=== PATIENT | male | born 1930 | race Caucasian/White ===

== ENCOUNTER 2019-02-10 14:50 | Inpatient (IN) | payer MEDICARE, OTHER ==
[2019-02-10 15:55] LABS: BASOPHILS # (AUTO) 0.1 10^3/uL (0.0-0.1); BASOPHILS % (AUTO) 1.1 %; EOSINOPHILS # (AUTO) 0.2 10^3/uL (0.0-0.7); EOSINOPHILS % (AUTO) 3.2 %; LYMPHOCYTES # (AUTO) 1.2 10^3/uL (1.5-3.5); LYMPHOCYTES % (AUTO) 20.4 %; MEAN CORPUSCULAR HEMOGLOBIN 18.7 pg (27.0-31.0); MEAN CORPUSCULAR HGB CONC 28.4 g/dL (32.0-36.0); MEAN CORPUSCULAR VOLUME 65.8 fL (80.0-94.0); MEAN PLATELET VOLUME 7.2 fL (7.4-11.4); MONOCYTES # (AUTO) 0.6 10^3/uL (0.0-1.0); MONOCYTES % (AUTO) 9.8 %; NEUTROPHILS # (AUTO) 3.9 10^3/uL (1.5-6.6); NEUTROPHILS % (AUTO) 65.5 %; PLT - PLATELET COUNT 263 10^3/uL (130-450); RED BLOOD COUNT 3.66 10^6/uL (4.70-6.10); RED CELL DISTRIBUTION WIDTH 17.9 % (12.0-15.0)
[2019-02-10 16:00] LABS: HGB - HEMOGLOBIN 6.8 g/dL (14.0-18.0)
[2019-02-10 16:04] LABS: ALBUMIN 3.3 g/dL (3.2-5.5); ALBUMIN/GLOBULIN RATIO 1.1 (1.0-2.2); BILIRUBIN,TOTAL 0.7 mg/dL (0.2-1.0); CALCIUM 8.8 mg/dL (8.5-10.3); CREATININE 1.1 mg/dL (0.6-1.2); INR 3.1 (0.8-1.2); PT - PROTHROMBIN TIME 34.3 secs (9.9-12.6); TOTAL PROTEIN 6.4 g/dL (6.7-8.2)
--- NOTE | 2019-02-10 16:16 | XRAY Report ---
Reason: shortness of breath, hx CHF Procedure Date: 02/10/2019 Accession Number: [id number] / [id number] Procedure: XR - Chest 2 View X-Ray CPT Code: 74820 FULL RESULT: EXAM: CHEST RADIOGRAPHY EXAM DATE: 02/10/2019 04:03 PM. CLINICAL HISTORY: Shortness of breath, hx CHF. COMPARISON: None. TECHNIQUE: 2 views. FINDINGS: Lungs/Pleura: Large bilateral pleural effusions. Hypoventilatory chest. Both lower lobes cannot be evaluated because of overlying fluid. Mild pulmonary venous congestion. Mediastinum: Mild to moderate cardiac enlargement. Other: None. IMPRESSION: Findings consistent with congestive heart failure, and include large bilateral pleural effusions. RADIA
[2019-02-10 16:17] LABS: PLATELET ESTIMATE, MANUAL NORMAL (130-450,000) (NORMAL); PLATELET MORPHOLOGY NORMAL APPEARANCE (NORMAL)
--- NOTE | 2019-02-10 16:48 | ED Physician Documentation ---
History of Present Illness - Stated complaint Stated Complaint: SOB - Chief complaint Chief Complaint: Resp - History obtained from History obtained from: Patient, Family - History of Present Illness Timing: How many days ago (several) Pain level max: 0 Pain level now: 0 - Additonal information Additional information: 88-year-old male presents the emergency department shortness of breath worsening for the past several days. No chest pain. No headache. No coughing. No vomiting. No fevers. He states that his primary care provider called him today told him he was anemic and should go to the emergency department. Patient denies any black or bloody stools. No changes to medication. He has wheelchair-bound for the past year and a half. Normally can transfer himself with a bar, but unable to do this secondary to weakness for the past few days. Also had a 30 pound weight gain in the past month or so per caregivers. Does have a CHF history. Also history of A. fib. Review of Systems Ten Systems: 10 systems reviewed and negative Constitutional: denies: Fever, Chills GI: denies: Vomiting, Hematemesis, Bloody / black stool Skin: denies: Rash Musculoskeletal: denies: Neck pain, Back pain PD PAST MEDICAL HISTORY - Past Medical History Past Medical History: Yes Cardiovascular: Congestive heart failure, Hypertension, Atrial fibrillation - Present Medications Home Medications: Ambulatory Orders Medication Instructions Recorded Confirmed Aspirin [Aspirin EC] 81 mg PO DAILY 02/10/19 02/10/19 Atenolol 25 mg PO DAILY 02/10/19 Bumetanide 1 mg PO DAILY 02/10/19 Cholecalciferol [Vitamin D3] 5,000 unit PO DAILY 02/10/19 Lisinopril 5 mg PO DAILY PM 02/10/19 Multivit-Min/FA/Lycopen/Lutein 1 each PO DAILY 02/10/19 [Centrum Silver Men Tablet] Simvastatin 40 mg PO DAILY PM 02/10/19 Tamsulosin HCl [Flomax] 0.4 mg PO DAILY PM 02/10/19 Warfarin Sodium 4 mg PO 02/10/19 Warfarin Sodium 6 mg PO 02/10/19 - Allergies Allergies/Adverse Reactions: Allergies Allergy/AdvReac Type Severity Reaction Status Date / Time No Known Drug Allergies Allergy Verified 02/10/19 15:09 - Living Situation Living Situation: reports: With family Living Arrangement: reports: At home - Social History Does the pt smoke?: No Does the pt have substance abuse?: No PD ED PE NORMAL - Vitals Vital signs reviewed: Yes - General General: Alert and oriented X 3, No acute distress - HEENT HEENT: PERRL, Moist mucous membranes - Neck Neck: Supple, no meningeal sign - Cardiac Cardiac: Other (irregular) - Respiratory Respiratory: No respiratory distress, Other (dimished BS bilaterally) - Abdomen Abdomen: Soft, Non tender, Non distended - Rectal Rectal: Other (normal rectal exam. hemoccult negative) - Derm Derm: Warm and dry - Extremities Extremities: Other (2+ pitting edema B) - Neuro Neuro: Alert and oriented X 3 - Psych Psych: Normal mood, Normal affect Results - Vitals Vitals: Vital Signs - 24 hr 02/10/19 02/10/19 15:01 16:10 Temperature 36.2 C L Heart Rate 89 89 Respiratory 20 26 H Rate Blood Pressure 113/73 138/75 H O2 Saturation 98 95 Oxygen O2 Source Room air - EKG (time done) 1504 Rate: Rate (enter#) (83) Rhythm: Atrial fibrillation [place]: Normal Intervals: LBBB - Labs Labs: Laboratory Tests 02/10/19 02/10/19 02/10/19 15:44 15:44 15:44 WBC 6.0 RBC 3.66 L Hgb 6.8 L* Hct 24.1 L MCV 65.8 L MCH 18.7 L MCHC 28.4 L RDW 17.9 H Plt Count 263 MPV 7.2 L Neut # (Auto) 3.9 Lymph # (Auto) 1.2 L [place] # (Auto) 0.6 Eos # (Auto) 0.2 Baso # (Auto) 0.1 Absolute Nucleated RBC 0.00 Nucleated RBC % 0.1 Manual Slide Review Indicated Platelet Estimate NORMAL (130-450,000) Platelet Morphology NORMAL APPEARANCE RBC Morph Micro Appear 1+ BASO STIPPLING PT 34.3 H INR 3.1 H Sodium 138 Potassium 4.6 Chloride 100 L Carbon Dioxide 28 Anion Gap 10.0 BUN 24 H Creatinine 1.1 Estimated GFR (MDRD) 63 L Glucose 154 H Glycated Hemoglobin Estim Average Glucose Calcium 8.8 Iron TIBC % Saturation Transferrin Total Bilirubin 0.7 AST 15 ALT 11 Alkaline Phosphatase 52 B-Natriuretic Peptide Total Protein 6.4 L Albumin 3.3 Globulin 3.1 Albumin/Globulin Ratio 1.1 Lipase 28 Blood Type Blood Type Recheck Antibody Screen Crossmatch IS Only 02/10/19 02/10/19 02/10/19 15:44 15:44 15:44 WBC RBC Hgb Hct MCV MCH MCHC RDW Plt Count MPV Neut # (Auto) Lymph # (Auto) [place] # (Auto) Eos # (Auto) Baso # (Auto) Absolute Nucleated RBC Nucleated RBC % Manual Slide Review Platelet Estimate Platelet Morphology RBC Morph Micro Appear PT INR Sodium Potassium Chloride Carbon Dioxide Anion Gap BUN Creatinine Estimated GFR (MDRD) Glucose Glycated Hemoglobin Estim Average Glucose Calcium Iron 11 L TIBC 396 % Saturation 3 L Transferrin 283 Total Bilirubin AST ALT Alkaline Phosphatase B-Natriuretic Peptide 177 H Total Protein Albumin Globulin Albumin/Globulin Ratio Lipase Blood Type Blood Type Recheck A NEGATIVE Antibody Screen Crossmatch IS Only 02/10/19 02/10/19 16:32 16:41 WBC RBC Hgb Hct MCV MCH MCHC RDW Plt Count MPV Neut # (Auto) Lymph # (Auto) [place] # (Auto) Eos # (Auto) Baso # (Auto) Absolute Nucleated RBC Nucleated RBC % Manual Slide Review Platelet Estimate Platelet Morphology RBC Morph Micro Appear PT INR Sodium Potassium Chloride Carbon Dioxide Anion Gap BUN Creatinine Estimated GFR (MDRD) Glucose Glycated Hemoglobin 7.9 H Estim Average Glucose 180 H Calcium Iron TIBC % Saturation Transferrin Total Bilirubin AST ALT Alkaline Phosphatase B-Natriuretic Peptide Total Protein Albumin Globulin Albumin/Globulin Ratio Lipase Blood Type A NEGATIVE Blood Type Recheck Antibody Screen NEGATIVE Crossmatch IS Only See Detail - Rads (name of study) cxr Radiology: Prelim report reviewed, EMP read contemporaneously, See rad report (Findings consistent with congestive heart failure, and include large bilateral pleural effusions. ) PD MEDICAL DECISION MAKING - ED course Complexity details: reviewed results, re-evaluated patient, considered differential, d/w patient, d/w family, d/w senior internet sales consultant ED course: 88-year-old male who receives most of his care at the [facility] outpatient office. He is found to have a CHF exacerbation with anasarca and pulmonary edema as well as pleural effusions. Also found to have significant anemia. Guaiac is negative on rectal exam. Will admit for blood transfusion and diuresis. Discussed the case with Dr. Horowitz, hospitalist who accepts This document was made in part using voice recognition software. While efforts are made to proofread this document, sound alike and grammatical errors may occur. Departure - Departure Disposition: 66 [facility] DC/Xfer Clinical Impression: Symptomatic anemia, Peripheral edema CHF exacerbation Qualifiers: Heart failure type: unspecified Qualified Code(s): I50.9 - Heart failure, unspecified Pulmonary edema Qualifiers: Chronicity: acute Qualified Code(s): J81.0 - Acute pulmonary edema Condition: Stable Discharge Date/Time: 02/10/19 18:12
[2019-02-10] MEDS ORDERED: FUROSEMIDE 40 MG/4 ML VIAL IVP STA (16:52)
[2019-02-10] MEDS ORDERED: FUROSEMIDE 20 MG/2 ML VIAL IVP PRN (17:18)
[2019-02-10] MEDS ORDERED: ONDANSETRON ODT 4 MG TABLET TL PRN (17:22)
[2019-02-10] MEDS ORDERED: ACETAMINOPHEN 325 MG TABLET PO PRN (17:22)
--- NOTE | 2019-02-10 18:16 | HISTORY & PHYSICAL EXAMINATION ---
Chief Complaint - Chief Complaint Chief Complaint: Progressive weakness with bilateral edema weight gain orthopnea and dark st Chest Pain Admission HPI - Admitted From Admitted from: ED - History Obtained From Records Reviewed: RN notes reviewed History obtained from: Patient, Family, Caregiver - History of Present Illness HPI Comment/Other: 88-year-old male With multiple cardiovascular comorbidities to include hypertension, hyperlipidemia, CHF, chronic atrial fibrillation anticoagulated with Coumadin, insulin requiring type 2 diabetes mellitus, morbid obesity, chronic bilateral edema who presents to the emergency department with progressive weakness, orthopnea, dyspnea on exertion, and a 30 pound weight gain with edematous legs. Patient also complains of increased abdominal girth. Patient's BNP was only 177 and was told to come in due to an abnormal hemoglobin of 6.8 found in the ED. [place] to the [place] and his doctor is Dr. Chris Coy who referral to see a medical nurse and a GI specialist because he believes that he has upper GI bleed. Patient was recently seenAdmitted over in [place] for coagulopathy related to his INR being supratherapeutic. Patient's initial labs showed a INR of 3.1. Hemoglobin 6.8, creatinine 1.1, BNP 177, glucose 154, chest x-ray showed probable vascular congestion with large bilateral pleural effusions. Ascites seen on exam. Very edematous bilateral lower extremity with chronicity with 4+ edema noted. EKG showed A. fib at 83 bpm with a left bundle branch block. We do not have prior echocardiogram or access to prior medical records. He has wheelchair-bound for the past year and a half. Normally can transfer himself with a bar, but unable to do this secondary to weakness for the past few days. PMH/PSH - Past Medical History MRSA Hx?: No Social & Family Hx - Social History Does the pt smoke?: No Smoking Status: Never smoker Does the pt drink ETOH?: No Does the pt have substance abuse?: No Meds/Allgy - Allergies Allergies/Adverse Reactions: Allergies Allergy/AdvReac Type Severity Reaction Status Date / Time No Known Drug Allergies Allergy Verified 02/10/19 15:09 Prior Level of Functionality: Patient was previously ambulatory but unknown functional capacity Exam - Vital Signs Vital Signs: Vital Signs x48h Temp Pulse Resp BP Pulse Ox 02/10/19 17:47 89 22 121/67 95 02/10/19 16:10 89 26 H 138/75 H 95 02/10/19 15:01 36.2 C L 89 20 113/73 98 - Physical Exam General Appearance: positive: No acute distress, Alert Eyes Bilateral: positive: Normal inspection, PERRL, EOMI, Other (Mild conjunctival pallor). negative: No scleral icterus ENT: positive: ENT inspection nml, Pharynx nml, No signs of dehydration Neck: positive: Nml inspection, Thyroid nml, No JVD, Trachea midline. negative: Thyromegaly Respiratory: positive: Chest non-tender, No respiratory distress, Rales, Rhonchi. negative: Wheezes Cardiovascular: positive: No murmur, No gallop, Irregularly irregular Peripheral Pulses: positive: Other (4+ bilateral pitting edema) Abdomen: positive: Non-tender, Hepatomegaly, Other (Significant non-tense ascite s). negative: Tenderness, Guarding, Rebound Rectal: positive: Stool - heme NEG Skin: positive: Color nml, No rash, Warm Extremities: positive: Non-tender, Full ROM, Pedal edema (Significant anasarca to Lower/upper extremities as well). negative: Calf tenderness, Joint swelling Neurologic/Psychiatric: positive: Oriented x3, CN's nml (2-12) Results - Lab Results Lab results reviewed: Yes Fish Bones: 02/10/19 15:44 02/10/19 15:44 Other Lab Results: Lab Results x24hrs 02/10/19 02/10/19 02/10/19 Range/Units 16:41 15:44 15:44 WBC (4.8-10.8) x10^3/uL RBC (4.70-6.10) 10^6/uL Hgb (14.0-18.0) g/dL Hct (42.0-52.0) % MCV (80.0-94.0) fL MCH (27.0-31.0) pg MCHC (32.0-36.0) g/dL RDW (12.0-15.0) % Plt Count (130-450) 10^3/uL MPV (7.4-11.4) fL Neut # (Auto) (1.5-6.6) 10^3/uL Lymph # (Auto) (1.5-3.5) 10^3/uL [place] # (Auto) (0.0-1.0) 10^3/uL Eos # (Auto) (0.0-0.7) 10^3/uL Baso # (Auto) (0.0-0.1) 10^3/uL Absolute Nucleated RBC x10^3/uL Nucleated RBC % /100WBC Manual Slide Review Platelet Estimate (NORMAL) Platelet Morphology (NORMAL) RBC Morph Micro Appear (NORMAL) PT (9.9-12.6) secs INR (0.8-1.2) Sodium (135-145) mmol/L Potassium (3.5-5.0) mmol/L Chloride (101-111) mmol/L Carbon Dioxide (21-32) mmol/L Anion Gap (6-13) BUN (6-20) mg/dL Creatinine (0.6-1.2) mg/dL Estimated GFR (MDRD) (>89) Glucose (70-100) mg/dL Calcium (8.5-10.3) mg/dL Total Bilirubin (0.2-1.0) mg/dL AST (10-42) IU/L ALT (10-60) IU/L Alkaline Phosphatase (42-121) IU/L B-Natriuretic Peptide 177 H (5-100) pg/mL Total Protein (6.7-8.2) g/dL Albumin (3.2-5.5) g/dL Globulin (2.1-4.2) g/dL Albumin/Globulin Ratio (1.0-2.2) Lipase (22-51) U/L Blood Type A NEGATIVE Blood Type Recheck A NEGATIVE Antibody Screen NEGATIVE Crossmatch IS Only See Detail 02/10/19 02/10/19 02/10/19 Range/Units 15:44 15:44 15:44 WBC 6.0 (4.8-10.8) x10^3/uL RBC 3.66 L (4.70-6.10) 10^6/uL Hgb 6.8 L* (14.0-18.0) g/dL Hct 24.1 L (42.0-52.0) % MCV 65.8 L (80.0-94.0) fL MCH 18.7 L (27.0-31.0) pg MCHC 28.4 L (32.0-36.0) g/dL RDW 17.9 H (12.0-15.0) % Plt Count 263 (130-450) 10^3/uL MPV 7.2 L (7.4-11.4) fL Neut # (Auto) 3.9 (1.5-6.6) 10^3/uL Lymph # (Auto) 1.2 L (1.5-3.5) 10^3/uL [place] # (Auto) 0.6 (0.0-1.0) 10^3/uL Eos # (Auto) 0.2 (0.0-0.7) 10^3/uL Baso # (Auto) 0.1 (0.0-0.1) 10^3/uL Absolute Nucleated RBC 0.00 x10^3/uL Nucleated RBC % 0.1 /100WBC Manual Slide Review Indicated Platelet Estimate NORMAL (130-450,000) (NORMAL) Platelet Morphology NORMAL APPEARANCE (NORMAL) RBC Morph Micro Appear 1+ BASO STIPPLING (NORMAL) PT 34.3 H (9.9-12.6) secs INR 3.1 H (0.8-1.2) Sodium 138 (135-145) mmol/L Potassium 4.6 (3.5-5.0) mmol/L Chloride 100 L (101-111) mmol/L Carbon Dioxide 28 (21-32) mmol/L Anion Gap 10.0 (6-13) BUN 24 H (6-20) mg/dL Creatinine 1.1 (0.6-1.2) mg/dL Estimated GFR (MDRD) 63 L (>89) Glucose 154 H (70-100) mg/dL Calcium 8.8 (8.5-10.3) mg/dL Total Bilirubin 0.7 (0.2-1.0) mg/dL AST 15 (10-42) IU/L ALT 11 (10-60) IU/L Alkaline Phosphatase 52 (42-121) IU/L B-Natriuretic Peptide (5-100) pg/mL Total Protein 6.4 L (6.7-8.2) g/dL Albumin 3.3 (3.2-5.5) g/dL Globulin 3.1 (2.1-4.2) g/dL Albumin/Globulin Ratio 1.1 (1.0-2.2) Lipase 28 (22-51) U/L Blood Type Blood Type Recheck Antibody Screen Crossmatch IS Only - Diagnostic Imaging Results Diagnostic Imaging Results: positive: Final report reviewed - EKG Results EKG Interpreted Independently: Yes EKG Comparison: positive: Old EKG unavailable EKG Findings: Patient has A. fib at 83 bpm with a left bundle branch block. CP/CHF Plan - Echo Plan to order an echo?: Yes - Plan Patient Problems: All Active Problems Acute on chronic systolic CHF (congestive heart failure) (Acute) Advanced care planning/counseling discussion (Acute) Anasarca (Acute) Bilateral pleural effusion (Acute) Chronic a-fib (Acute) Hyperlipidemia (Acute) Hypertension (Acute) Insulin-requiring or dependent type II diabetes mellitus (Acute) Leg edema (Acute) Microcytosis (Acute) Morbid obesity (Acute) Orthopnea (Acute) Symptomatic anemia (Acute) Upper GI bleed (Acute) CHF exacerbation (Acute) Peripheral edema (Acute) Pulmonary edema (Acute) Plan: Patient presenting with dark Stools several months ago and had been previously admitted for coagulopathy however unclear if patient had upper GI bleed on last admission where he went in [place]. In addition patient was referred by his PCP to GI specialist for possible upper GI bleed. I have consulted surgery for possible upper endoscopy. Patient's INR is 3.1 to indicate coagulopathy but guaiac was negative in the ED. Patient has a hemoglobin of 6.8 and will transfuse 2 units of PRBCs. Patient will have Coumadin on hold and will defer off vitamin K as this takes many days for INR to go back up. Patient's BNP was only 177 but has bilateral large pleural effusions, ascites, bilateral lower extremity; severe anasarca to query on possible nephrotic syndrome superimposed however albumin was only 3.3. Will obtain a lipid panel along with echocardi ogram to better evaluate underlying conditions. Patient does not have a primary medical nurse and this [facility]. Will obtain another occult blood test as this would improve an increase yield. 2 units of PRBCs to be transfused, placed on IV Bumex at 4 mg daily, will have Lasix in between units of PRBCs. INR monitoring. Continue with guideline directed medical therapy with continuation of atenolol, lisinopril, as well as statin. We will continue with Flomax as patient has underlying BPH. Advance care education and counseling were performed at bedside with goals of care, multiple comorbidities of multiple medical conditions discussed in detail, along with trajectory of illness. Patient deciding on deferring to living will which he has reiterated his CODE STATUS as DNR/DNI. Core Measures - Anticipated LOS I expect patient to be DC'd or transferred within 96 hours.: Yes - DVT/VTE - Prophylaxis VTE/DVT Device ordered at admit?: Yes VTE/DVT Prophylaxis med ordered at admit?: No Not Ordered - Medical Reason: Not indicated
[2019-02-10 18:24] LABS: % IRON SATURATION 3 % (20-50); IRON 11 ug/dL (45-182); TOTAL IRON BINDING CAPACITY 396 ug/dL (250-450); TRANSFERRIN 283 mg/dL (180-329)
[2019-02-10 19:10] LABS: HB2 TOTAL 7.2 g/dL; HEMOGLOBIN A1C 0.45 g/dL; HEMOGLOBIN A1C % 7.9 % (4.6-6.2)
[2019-02-10] MEDS ORDERED: FAMOTIDINE 20 MG TABLET PO SCH (21:00)
[2019-02-10] MEDS: INSULIN GLARGINE 300 UNIT/3 ML PEN SUBQ SCH (21:15)
[2019-02-10] MEDS: INSULIN ASPART 300 UNIT/3 ML PEN SUBQ SCH (21:16)
[2019-02-10] MEDS: SODIUM CHLORIDE FLUSH 0.9% 10 ML SYRINGE IVP PRN ×2 (21:17→22:20)
[2019-02-10] MEDS ORDERED: SODIUM CHLORIDE FLUSH 0.9% 10 ML SYRINGE ONE (22:22)
[2019-02-10] MEDS: SODIUM CHLORIDE FLUSH 0.9% 10 ML SYRINGE IVP SCH (23:33)
[2019-02-11] MEDS ORDERED: FUROSEMIDE 40 MG/4 ML VIAL IVP SCH (06:00)
[2019-02-11 06:42] LABS: BASOPHILS # (AUTO) 0.1 10^3/uL (0.0-0.1); BASOPHILS % (AUTO) 1.8 %; EOSINOPHILS # (AUTO) 0.2 10^3/uL (0.0-0.7); EOSINOPHILS % (AUTO) 2.8 %; LYMPHOCYTES # (AUTO) 1.1 10^3/uL (1.5-3.5); LYMPHOCYTES % (AUTO) 19.2 %; MEAN PLATELET VOLUME 7.1 fL (7.4-11.4); MONOCYTES # (AUTO) 0.6 10^3/uL (0.0-1.0); MONOCYTES % (AUTO) 11.1 %; NEUTROPHILS # (AUTO) 3.7 10^3/uL (1.5-6.6); NEUTROPHILS % (AUTO) 65.1 %; PLT - PLATELET COUNT 249 10^3/uL (130-450); RED BLOOD COUNT 3.94 10^6/uL (4.70-6.10); WHITE BLOOD COUNT 5.7 x10^3/uL (4.8-10.8)
[2019-02-11 06:47] LABS: MEAN CORPUSCULAR HEMOGLOBIN 21.1 pg (27.0-31.0); MEAN CORPUSCULAR HGB CONC 30.8 g/dL (32.0-36.0); MEAN CORPUSCULAR VOLUME 68.7 fL (80.0-94.0); RED CELL DISTRIBUTION WIDTH 20.3 % (12.0-15.0)
[2019-02-11 06:51] LABS: ALBUMIN 3.3 g/dL (3.2-5.5); CALCIUM 8.7 mg/dL (8.5-10.3); CREATININE 1.3 mg/dL (0.6-1.2); PHOSPHORUS 3.6 mg/dL (2.5-4.6)
[2019-02-11 06:56] LABS: CHOL/HDL RATIO 2.2 (<5.0); CHOLESTEROL 84 mg/dL; HDL CHOLESTEROL 39 mg/dL; LDL CHOLESTEROL,CALCULATED 33 mg/dL; LDL/HDL RATIO 0.8 (<3.6); VLDL CHOLESTEROL 12 mg/dL
[2019-02-11 06:59] LABS: PLATELET ESTIMATE, MANUAL NORMAL (130-450,000) (NORMAL)
[2019-02-11] MEDS ORDERED: LOSARTAN 50 MG TABLET PO SCH (09:00)
[2019-02-11] MEDS ORDERED: BUMETANIDE IV SCH (09:00)
[2019-02-11] MEDS ORDERED: SODIUM CHLORIDE 0.9% IV SCH (09:00)
[2019-02-11] MEDS: INSULIN ASPART 300 UNIT/3 ML PEN SUBQ SCH ×4 (09:08→20:26)
[2019-02-11] MEDS: CHOLECALCIFEROL 5,000 UNIT CAPSULE PO SCH (09:34)
[2019-02-11] MEDS: SPIRONOLACTONE 25 MG TABLET PO SCH (09:35)
[2019-02-11] MEDS: PANTOPRAZOLE 40 MG VIAL IV SCH ×2 (09:39→20:25)
[2019-02-11] MEDS: SODIUM CHLORIDE FLUSH 0.9% 10 ML SYRINGE IVP SCH ×2 (09:42→10:25)
[2019-02-11 09:50] LABS: INR 2.8 (0.8-1.2); PT - PROTHROMBIN TIME 30.5 secs (9.9-12.6)
[2019-02-11] MEDS ORDERED: FERRIC GLUCONATE 125 MG in SODIUM CHLORIDE 0.9% 100ML 100 ML IV ONE (12:00)
--- NOTE | 2019-02-11 12:46 | MISCELLANEOUS PROVIDER NOTE ---
Miscellaneous Provider Note - - Note: HPI Comment/Other: 88-year-old male With multiple cardiovascular comorbidities to include hypertension, hyperlipidemia, CHF, chronic atrial fibrillation anticoagulated with Coumadin, insulin requiring type 2 diabetes mellitus, morbid obesity, chronic bilateral edema who presents to the emergency department with progressive weakness, orthopnea, dyspnea on exertion, and a 30 pound weight gain with edematous legs. Patient also complains of increased abdominal girth. Patient's BNP was only 177 and was told to come in due to an abnormal hemoglobin of 6.8 found in the ED. Patient goes to the [facility] and his doctor is Dr. Chris Coy who referral to see a administrative aide and a GI specialist because he believes that he has upper GI bleed. Patient was recently seenAdmitted over in [place] for coagulopathy related to his INR being supratherapeutic. Patient's initial labs showed a INR of 3.1. Hemoglobin 6.8, creatinine 1.1, BNP 177, glucose 154, chest x-ray showed probable vascular congestion with large bilateral pleural effusions. Ascites seen on exam. Very edematous bilateral lower extremity with chronicity with 4+ edema noted. EKG showed A. fib at 83 bpm with a left bundle branch block. We do not have prior echocardiogram or access to prior medical records. He has wheelchair-bound for the past year and a half. Normally can transfer himself with a bar, but unable to do this secondary to weakness for the past few days. Subjective: Patient seen at bedside with increased urinary output secondary to diuretics and improved bilateral lower extremity swelling edema with now on 1 L nasal cannula but good saturations, mentions improved orthopnea. Patient denies bright red blood per rectum, melena, maculopapular rashes, chest pain, mentions improved decrease in abdominal girth. Next Objective: Vital signs hemodynamically stable, heart rate 73 bpm in A. fib, 120/59, RR 18, 90% O2 saturation 1 L nasal cannula next General: Patient is chronically ill-appearing in no acute respiratory distress speaking full sentences. Cooperative and pleasant. HEENT: Positive conjunctival pallor no scleral icterus. NCAT. Neck: Mild JVD, no bruits, no lymphadenopathy, trachea midline, no thyromegaly. CV/lungs: Irregular rate and rhythm. S1-S2 within normal limits. No murmurs, gallops, clicks, rubs. Decreased breath sounds bilaterally with fine rales to bases. No wheezing, no increased work of breath or retractions. Abdomen: Positive ascites present with no rebound tenderness, masses, hernias, positive bowel sounds all quadrants. No hepatosplenomegaly. Next rectal: No scrotal edema. Rectal deferred. Extremities/skin: 3+ pitting edema bilateral lower extremity. Unable to detect dorsalis pedis due to edema. No maculopapular rashes, ulcers, cyanosis. Labs: Reviewed Imaging studies: Reviewed Assessment/plan: 1. Acute on chronic systolic CHF (congestive heart failure) (Acute), Stage C Ejection fraction of 45 to 50% on echo with severe pulmonary hypertension with RVSP of 74 mmHg. Guideline directed medical therapy to be instituted with metoprolol ER succinate, bisoprolol or equivalent, discontinue atenolol for this matter. Patient may benefit from Entresto. Would start Aldactone, continue with Bumex IV. Lipid panel and secondary prevention, statin if indicated. 2. Multifactorial cause for anemia with suspected Acute blood loss symptomatic anemia Patient is iron deficient anemia, will give IV iron x1 and then ferrous sulfate. 2 sets of occults blood were ordered. First guaiac was negative. Surgery consultation on possible endoscopy however may be more suited for a CT abdomen pelvis with PO/IV contrast to evaluate for possible underlying colon CA or mass, as performing endoscopy is high risk due to coagulopathy and elevated INR. CT abdomen pelvis shows liver to have fine nodular contour. Trace ascites. Question chronic liver disease. The gallbladder wall is thickened and there is trace pericholecystic fluid. This may be related to liver disease. There is distal colonic diverticulosis without associated acute inflammatory changes. There are bilateral pleural effusions with adjacent atelectasis, right larger than left. No evidence of colonic masses, or thickened bowels. 2. Leg edema With associated anasarca (Chronic) Patient has improved diureses, does not appear to have nephrotic syndrome based on lipid panel, TSH to follow. 3. Bilateral pleural effusion (Acute) Large bilateral pleural effusion seen on chest x-ray. This is likely secondary to patient's ongoing chronic systolic CHF. Patient would probably benefit from thoracenteses. However interventional radiology is not offered here. Continue with IV diureses. Add Aldactone for this as well as part of GDMtx. 4. Chronic a-fib Previously with supratherapeutic INR. Patient is anticoagulated with Coumadin with a therapeutic INR of 2.8. Holding for now as patient may or may not need endoscopy. 5. Hyperlipidemia (Chronic Continue with statin 6. Hypertension (Chronic) Continue with BP meds 7. Insulin-requiring or dependent type II diabetes mellitus (Chronic) Continue with bolus and basal coverage. Somewhat uncontrolled with a hemoglobin A1c of 7.9% Advanced care planning/counseling discussion (Acute) CODE STATUS: Patient wants CPR/DNI with limited interventions to include BiPAP CPAP, IV meds, IV antibiotics, and no artificial nutrition. Patient has a living well, POLST updated in [place].
--- NOTE | 2019-02-11 13:15 | CONSULTATION NOTE ---
Referring Provider Name of Referring Provider:: Dr. Hammad Horowitz Consult Date: 02/11/19 Chief Complaint - Chief Complaint Chief Complaint: Anemia History of Present Illness - Admitted From Admitted From:: Home - History Obtained From History obtained from: Patient and patient's son - History of Present Illness HPI Comment/Other: Very pleasant and unfortunate gentleman admitted with profound anemia and supr atherapeutic INR. He lives with his son and daughter in law. He and his son both report that he was known to be anemic for several years and was waiting for a GI referral from the [place]. He has never had a colonoscopy. He has seen some blood in his stool on an inconsistent basis. Finally admitted here with heart failure and anasarca among other severe and concerning diagnoses. I have been asked to see him regarding the possibility of a scope to help determine the cause of the anemia. History - Past Medical History Cardiovascular: reports: Congestive heart failure, Hypertension, Atrial fibrillation Respiratory: reports: Shortness of breath, Sleep apnea Neuro: reports: CVA, Peripheral neuropathy Endocrine/Autoimmune: reports: Type 2 diabetes : reports: Nocturia, Frequency Derm: reports: Other MRSA Hx?: No - Family & Social History Living arrangement: At home Living Situation: With family Meds/Allgy - Home Medications Home Medications: Ambulatory Orders Medication Instructions Recorded Confirmed Aspirin [Aspirin EC] 81 mg PO DAILY 02/10/19 02/11/19 Atenolol 25 mg PO QPM 02/10/19 02/11/19 Bumetanide 1 mg PO DAILY 02/10/19 02/11/19 Cholecalciferol [Vitamin D3] 5,000 unit PO DAILY 02/10/19 02/11/19 Lisinopril 5 mg PO QPM 02/10/19 02/11/19 Multivit-Min/FA/Lycopen/Lutein 1 each PO DAILY 02/10/19 02/11/19 [Centrum Silver Men Tablet] Simvastatin 40 mg PO QPM 02/10/19 02/11/19 Tamsulosin HCl [Flomax] 0.4 mg PO QPM 02/10/19 02/11/19 Warfarin Sodium 4 mg PO WESA@2100 02/10/19 02/11/19 Warfarin Sodium 6 mg PO SUMOTUTHFR@209902/10/19 02/11/19 - Allergies Allergies/Adverse Reactions: Allergies Allergy/AdvReac Type Severity Reaction Status Date / Time No Known Drug Allergies Allergy Verified 02/10/19 15:09 Review of Systems - Gastrointestinal Gastrointestinal: reports: Abdominal distention, Rectal bleeding, Black stools, Bloating. denies: Abdominal pain, Constipation, Diarrhea, Change in bowel habits, Nausea, Vomiting, Bile emesis, Raji blood emesis, Coffee grounds emesis, Reflux/heartburn, Poor appetite Exam - Vital Signs Vital Signs: Vital Signs x48h Temp Pulse Resp BP BP Pulse Ox 02/11/19 11:15 36.7 C 82 18 122/54 L 97 02/11/19 07:40 36.7 C 73 18 120/59 L 98 02/11/19 05:55 36.6 C 74 20 123/50 L 98 - Physical Exam General Appearance: positive: No acute distress Respiratory: positive: Other (decreased breath sounds bilaterally) Abdomen: positive: Non-tender, Nml bowel sounds, Other (soft with a positive fluid wave). negative: No distention, Guarding, Rebound Conclusion/Plan - Diagnosis Diagnosis: Anemia - Lab Results Lab results reviewed: Yes Fish Bones: 02/11/19 06:20 02/11/19 06:20 - Diagnostic Imaging Results Diagnostic Imaging Results: positive: Final report reviewed, Read independently (Mr. Rosales is a remarkably poor candidate for any invasive procedure. I think it is even a risky proposition to sedate him for a limited EGD. I have discussed this with Dr. Horowitz. I have recommended CT scan with PO and IV contrast. I will not image very small lesions but will find a large colon cancer or ulcer that could be responsible for continued blood loss. This study has been ordered.)
[2019-02-11] MEDS: POLYETHYLENE GLYCOL 3350 17 GM PACKET PO SCH (13:32)
[2019-02-11] MEDS ORDERED: IOVERSOL 320 50 ML VIAL ONE (13:38)
[2019-02-11] MEDS ORDERED: IOVERSOL 320 100 ML VIAL IVP ONE ×2 (13:39→15:46)
[2019-02-11] MEDS: SODIUM CHLORIDE FLUSH 0.9% 10 ML SYRINGE IVP PRN (14:50)
--- NOTE | 2019-02-11 16:10 | CT Report ---
Reason: Anemia, GI hemorrhage Procedure Date: 02/11/2019 Accession Number: [id number] / [id number] Procedure: CT - Abdomen/Pelvis W CPT Code: FULL RESULT: EXAM: CT ABDOMEN AND PELVIS EXAM DATE: 02/11/2019 03:45 PM. CLINICAL HISTORY: Anemia, GI hemorrhage. COMPARISONS: CHEST 2 VIEW 02/10/2019 3:38 PM. TECHNIQUE: Routine helical CT imaging was performed through the abdomen and pelvis. IV contrast: 100 mL Optiray 320. Enteric contrast: Yes. Reconstructions: Coronal and sagittal. In accordance with CT protocol optimization, one or more of the following dose reduction techniques were utilized for this exam: automated exposure control, adjustment of mA and/or KV based on patient size, or use of iterative reconstructive technique. FINDINGS: Lung Bases: There is a moderate right pleural effusion with adjacent atelectasis. There is a smaller left pleural effusion with adjacent atelectasis. There is right atrial dilation. Liver: No discrete focal abnormality. The liver may have a slightly nodular contour. Gallbladder/Bile Ducts: The gallbladder wall is thickened up to approximately 5 mm. There is trace pericholecystic fluid. Spleen: The spleen size is normal. There are 2 calcifications in the spleen. Pancreas: Normal. Adrenal Glands: Normal. Kidneys: An upper pole right renal cortical cyst measures 1.2 cm. An exophytic lateral lower pole left renal cortical cyst measures 1 cm. The kidneys have a lobular contour bilaterally. Negative for hydronephrosis. Peritoneal Cavity/Bowel: No free air. No bowel obstruction. There is sigmoid colonic diverticulosis. There is trace ascites, mostly around the liver and along the right pericolic gutter. There is mild presacral and mesenteric edema. The appendix is not definitely visualized. Pelvic Organs: There is asymmetric fat density in the left inguinal canal, suspect a left inguinal hernia. The bladder and visualized pelvic organs are within normal limits. Vasculature: There is atherosclerotic calcification in the aorta and iliac arteries without aneurysm. Bones: There is multilevel degenerative disk disease in the spine. There is a chronic appearing wedge compression deformity of L1. There are mild degenerative changes in the hips. Other: There is diffuse body wall edema, greatest in the legs. No pathologic adenopathy. IMPRESSION: 1. Evaluation for an acute intraluminal hemorrhage in the GI tract is limited by the presence of positive oral contrast. 2. The liver appears to have a fine nodular contour. There is trace ascites. Question chronic liver disease. 3. The gall bladder wall is thickened and there is trace pericholecystic fluid. This may be related to liver disease. Cholecystitis is another possibility. 4. There is distal colonic diverticulosis without associated acute inflammatory changes. 5. There are bilateral pleural effusions with adjacent atelectasis, right larger than left. 6. Atherosclerotic vascular disease and other incidental findings described above. RADIA
[2019-02-11] MEDS: FERROUS SULFATE 325 MG TABLET PO SCH (16:41)
[2019-02-11] MEDS: ATORVASTATIN 40 MG TABLET PO SCH (20:25)
[2019-02-11] MEDS: TAMSULOSIN 0.4 MG CAPSULE PO SCH (20:26)
[2019-02-11] MEDS: INSULIN GLARGINE 300 UNIT/3 ML PEN SUBQ SCH (20:27)
[2019-02-11] MEDS ORDERED: ATENOLOL 25 MG TABLET PO SCH (21:00)
[2019-02-11] MEDS ORDERED: ZINC OXIDE 20% OINT 28.35 GM TUBE TOP PRN (22:27)
[2019-02-11] MEDS ORDERED: CALAMINE/ZINC OXIDE 118 ML BOTTLE TOP PRN (22:27)
[2019-02-11] MEDS: ZOLPIDEM 5 MG TABLET PO PRN (23:40)
[2019-02-12] MEDS: SODIUM CHLORIDE FLUSH 0.9% 10 ML SYRINGE IVP SCH ×3 (00:14→09:42)
[2019-02-12 06:32] LABS: BASOPHILS # (AUTO) 0.1 10^3/uL (0.0-0.1); BASOPHILS % (AUTO) 1.1 %; EOSINOPHILS # (AUTO) 0.2 10^3/uL (0.0-0.7); EOSINOPHILS % (AUTO) 3.3 %; HGB - HEMOGLOBIN 7.7 g/dL (14.0-18.0); LYMPHOCYTES % (AUTO) 17.7 %; MEAN CORPUSCULAR HEMOGLOBIN 20.6 pg (27.0-31.0); MEAN CORPUSCULAR HGB CONC 30.1 g/dL (32.0-36.0); MEAN CORPUSCULAR VOLUME 68.2 fL (80.0-94.0); MEAN PLATELET VOLUME 6.9 fL (7.4-11.4); MONOCYTES # (AUTO) 0.7 10^3/uL (0.0-1.0); NEUTROPHILS # (AUTO) 3.8 10^3/uL (1.5-6.6); NEUTROPHILS % (AUTO) 65.9 %; PLT - PLATELET COUNT 224 10^3/uL (130-450); RED BLOOD COUNT 3.72 10^6/uL (4.70-6.10); RED CELL DISTRIBUTION WIDTH 20.7 % (12.0-15.0); WHITE BLOOD COUNT 5.8 x10^3/uL (4.8-10.8)
[2019-02-12 06:38] LABS: INR 2.5 (0.8-1.2); PT - PROTHROMBIN TIME 27.6 secs (9.9-12.6)
[2019-02-12 06:48] LABS: ALBUMIN 3.1 g/dL (3.2-5.5); CALCIUM 8.6 mg/dL (8.5-10.3); CREATININE 1.2 mg/dL (0.6-1.2); PHOSPHORUS 3.3 mg/dL (2.5-4.6)
[2019-02-12] MEDS ORDERED: FUROSEMIDE 20 MG/2 ML VIAL IVP PRN (08:00)
[2019-02-12] MEDS ORDERED: METOPROLOL SUCCINATE 25 MG TABLET PO SCH (09:00)
--- NOTE | 2019-02-12 09:18 | MISCELLANEOUS PROVIDER NOTE ---
Miscellaneous Provider Note - - Note: HPI Comment/Other: 88-year-old male With multiple cardiovascular comorbidities to include hypertension, hyperlipidemia, CHF, chronic atrial fibrillation anticoagulated with Coumadin, insulin requiring type 2 diabetes mellitus, morbid obesity, chronic bilateral edema who presents to the emergency department with progressive weakness, orthopnea, dyspnea on exertion, and a 30 pound weight gain with edematous legs. Patient also complains of increased abdominal girth. Patient's BNP was only 177 and was told to come in due to an abnormal hemoglobin of 6.8 found in the ED. Patient goes to the [place] and his doctor is Dr. Chris Coy who referral to see a button breaker and a GI specialist because he believes that he has upper GI bleed. Patient was recently seenAdmitted over in [place] for coagulopathy related to his INR being supratherapeutic. Patient's initial labs showed a INR of 3.1. Hemoglobin 6.8, creatinine 1.1, BNP 177, glucose 154, chest x-ray showed probable vascular congestion with large bilateral pleural effusions. Ascites seen on exam. Very edematous bilateral lower extremity with chronicity with 4+ edema noted. EKG showed A. fib at 83 bpm with a left bundle branch block. We do not have prior echocardiogram or access to prior medical records. He has wheelchair-bound for the past year and a half. Normally can transfer himself with a bar, but unable to do this secondary to weakness for the past few days. Subjective: Patient seen at bedside with no acute overnight events, no bright red blood per rectum, melena, hematochezia. Patient has improved somewhat in his respiratory status along with increased diureses with urine output of approximately 9.5 L. Patient has improved bilateral Lower extremity severe edema. Objective: Vital signs hemodynamically stable, Afebrile, heart rate 79 bpm in A. fib, RR 20, blood pressure 111/55, 97% O2 saturation on 2 L nasal cannula. General: Patient is chronically ill-appearing in no acute respiratory distress speaking full sentences. Cooperative and pleasant. HEENT: Positive conjunctival pallor no scleral icterus. NCAT. Neck: Mild JVD, no bruits, no lymphadenopathy, trachea midline, no thyromegaly. CV/lungs: Irregular rate and rhythm. S1-S2 within normal limits. No murmurs, gallops, clicks, rubs. Decreased breath sounds bilaterally with fine rales to bases. No wheezing, no increased work of breath or retractions. Abdomen: Positive ascites, Improved no rebound tenderness, masses, hernias, positive bowel sounds all quadrants. No hepatosplenomegaly. rectal: No scrotal edema. Rectal deferred. Extremities/skin: Improved 3+ pitting edema bilateral lower extremity. Unable to detect dorsalis pedis due to edema. No maculopapular rashes, ulcers, cyanosis. Labs: Reviewed Imaging studies: Reviewed Assessment/plan: 1. Acute on chronic systolic CHF (congestive heart failure) (Acute), Stage C Patient has improvement to respiratory function as well as severe bilateral lower extremity edema with a total diuresis of 9575 mL's for his urine output. Ejection fraction of 45 to 50% on echo with severe pulmonary hypertension with RVSP of 74 mmHg. There was evidence of severe right atrial enlargement with associated impairment. There is a component of underlying obstructive sleep apnea with a component of cor pulmonale. Patient would benefit from sleep study as outpatient. This would improve overall apnea and oxygenation which would subsequently improve on his R-sided and Left sided HF. Guideline directed medical therapy to be instituted with metoprolol ER succinate, bisoprolol or equivalent, discontinue atenolol for this matter. Patient may benefit from Entresto. Would start Aldactone, continue with Bumex IV. Lipid panel and secondary prevention, statin if indicated. 2. Right-sided heart failure//Cor pulmonale with associated severe pulmonary hypertension This is most likely secondary to patient's obstructive sleep apnea which patient may or may have not been diagnosed previously and is on intermittent home O2 oxygen at home. Patient likely will require sleep study as an outpatient. Will continue with medical management as delineated for patient's stage C heart failure. 3. Multifactorial cause for anemia with suspected Acute blood loss symptomatic anemia Patient with a history of intermittent melena in the past. Currently without brenda bleeding. Patient is iron deficient anemia, Status post 1 dose of IV iron, on ferrous sulfate. Still awaiting for occult blood test x2. First guaiac was negative. Surgery consultation was done, with deferral of endoscopy for now due to high INR, CT abdomen pelvis was unremarkable. Continue with H&H monitoring. Transfuse under labral transfusion protocol less than 8 g/dL due to patient's existing chronic A. fib CT abdomen pelvis shows liver to have fine nodular contour. Trace ascites. Question chronic liver disease. The gallbladder wall is thickened and there is trace pericholecystic fluid. This may be related to liver disease. There is distal colonic diverticulosis without associated acute inflammatory changes. There are bilateral pleural effusions with adjacent atelectasis, right larger than left. No evidence of colonic masses, or thickened bowels. 4. Leg edema With associated anasarca (Chronic) Likely secondary to right sided heart failure as well as left-sided heart failure. Patient has improved diureses, does not appear to have nephrotic syndrome based on lipid panel, TSH to follow. 5. Bilateral pleural effusion (Acute) Large bilateral pleural effusion seen on chest x-ray. This is likely secondary to patient's ongoing chronic systolic CHF. Patient would probably benefit from thoracenteses. However interventional radiology is not offered here. Will uptitrate to Bumex 4 mg IV twice daily. Patient will receive 2 units of PRBCs in anticipation of fluid overload and with Lasix in between. Patient was started on Aldactone at 25 mg p.o. daily to continue. 6. Chronic a-fib CHADSVAsc Is 5 points which is 7.2% stroke risk per year. Although he does need to be evaluated for possible anticoagulation with an NOAC this is done at a [id number] basis per up-to-date literature. Previously with supratherapeutic INR. Patient is anticoagulated with Coumadin with a therapeutic INR of 2.5. Will discontinue Coumadin and placed on Xarelto instead at 20 mg p.o. daily, creatinine clearance 60-89. 7. Hyperlipidemia (Chronic Continue with statin 8. Hypertension (Chronic) Continue with BP meds 9. Insulin-requiring or dependent type II diabetes mellitus (Chronic) Continue with bolus and basal coverage. Somewhat uncontrolled with a hemoglobin A1c of 7.9% Advanced care planning/counseling discussion (Acute) CODE STATUS: Patient wants CPR/DNI with limited interventions to include BiPAP CPAP, IV meds, IV antibiotics, and no artificial nutrition. Patient has a living well, POLST updated in [facility].
[2019-02-12] MEDS: METOPROLOL SUCCINATE 25 MG TABLET PO SCH (09:22)
[2019-02-12] MEDS: LOSARTAN 50 MG TABLET PO SCH (09:22)
[2019-02-12] MEDS: CHOLECALCIFEROL 5,000 UNIT CAPSULE PO SCH (09:23)
[2019-02-12] MEDS: PANTOPRAZOLE 40 MG TABLET PO SCH (09:23)
[2019-02-12] MEDS: FERROUS SULFATE 325 MG TABLET PO SCH ×2 (09:24→16:28)
[2019-02-12] MEDS: SODIUM CHLORIDE 0.9% IV SCH ×2 (09:25→21:45)
[2019-02-12] MEDS: SPIRONOLACTONE 25 MG TABLET PO SCH (09:25)
[2019-02-12] MEDS: BUMETANIDE IV SCH ×2 (09:25→21:45)
[2019-02-12] MEDS: POLYETHYLENE GLYCOL 3350 17 GM PACKET PO SCH (09:25)
[2019-02-12] MEDS: INSULIN ASPART 300 UNIT/3 ML PEN SUBQ SCH ×4 (09:33→21:47)
[2019-02-12] MEDS ORDERED: SODIUM CHLORIDE 0.9% 500 ML IV ONE ×2 (10:24→14:53)
[2019-02-12] MEDS: SODIUM CHLORIDE FLUSH 0.9% 10 ML SYRINGE IVP PRN ×3 (10:44→22:00)
[2019-02-12] MEDS: SUCRALFATE 1 GM/10 ML UDC PO SCH ×3 (10:55→21:41)
[2019-02-12] MEDS ORDERED: SODIUM CHLORIDE FLUSH 0.9% 10 ML SYRINGE ONE (11:36)
--- NOTE | 2019-02-12 13:23 | PROVIDER PROGRESS NOTE ---
Subjective - Prog Note Date Prog Note Date: 02/12/19 Prog Note Time: 13:21 - Subjective Pt reports feeling: Improved Subjective: Michael reports feeling "pretty good" today. He denies any discomfort and seems to feel much better than he did at admission. Denies any abdominal pain. Objective - Vital Signs/Intake & Output Vital Signs: Vital Signs x48h Temp Pulse Pulse Resp BP BP Pulse Ox 02/12/19 12:09 36.4 C L 88 18 120/61 98 02/12/19 10:57 36.6 C 88 18 136/65 H 02/12/19 10:43 36.7 C 94 18 130/52 L 02/12/19 07:31 36.4 C L 79 20 111/55 L 97 Intake & Output: Intake & Output 02/09/19 02/10/19 02/11/19 02/12/19 23:59 23:59 23:59 23:59 Intake Total 410 2456 646 Output Total 2958 8774 4460 Balance -0639 -8721 -8364 - Objective Abdomen: positive: Non-tender, Nml bowel sounds, No distention - Lab Results Fish Bones: 02/12/19 06:15 02/12/19 06:15 Other Labs: Lab Results x24hrs 02/12/19 02/12/19 02/12/19 Range/Units 07:24 06:15 06:15 WBC (4.8-10.8) x10^3/uL RBC (4.70-6.10) 10^6/uL Hgb (14.0-18.0) g/dL Hct (42.0-52.0) % MCV (80.0-94.0) fL MCH (27.0-31.0) pg MCHC (32.0-36.0) g/dL RDW (12.0-15.0) % Plt Count (130-450) 10^3/uL MPV (7.4-11.4) fL Neut # (Auto) (1.5-6.6) 10^3/uL Lymph # (Auto) (1.5-3.5) 10^3/uL [place] # (Auto) (0.0-1.0) 10^3/uL Eos # (Auto) (0.0-0.7) 10^3/uL Baso # (Auto) (0.0-0.1) 10^3/uL Absolute Nucleated RBC x10^3/uL Nucleated RBC % /100WBC PT 27.6 H (9.9-12.6) secs INR 2.5 H (0.8-1.2) Sodium (135-145) mmol/L Potassium (3.5-5.0) mmol/L Chloride (101-111) mmol/L Carbon Dioxide (21-32) mmol/L Anion Gap (6-13) BUN (6-20) mg/dL Creatinine (0.6-1.2) mg/dL Estimated GFR (MDRD) (>89) Glucose (70-100) mg/dL POC Whole Bld Glucose 135 H (70 - 100) mg/dL Calcium (8.5-10.3) mg/dL Phosphorus (2.5-4.6) mg/dL B-Natriuretic Peptide 177 H (5-100) pg/mL Albumin (3.2-5.5) g/dL TSH (0.34-5.60) uIU/mL Blood Type Antibody Screen Crossmatch IS Only 02/12/19 02/12/19 02/11/19 Range/Units 06:15 06:15 16:34 WBC 5.8 (4.8-10.8) x10^3/uL RBC 3.72 L (4.70-6.10) 10^6/uL Hgb 7.7 L (14.0-18.0) g/dL Hct 25.4 L (42.0-52.0) % MCV 68.2 L (80.0-94.0) fL MCH 20.6 L (27.0-31.0) pg MCHC 30.1 L (32.0-36.0) g/dL RDW 20.7 H (12.0-15.0) % Plt Count 224 (130-450) 10^3/uL MPV 6.9 L (7.4-11.4) fL Neut # (Auto) 3.8 (1.5-6.6) 10^3/uL Lymph # (Auto) 1.0 L (1.5-3.5) 10^3/uL [place] # (Auto) 0.7 (0.0-1.0) 10^3/uL Eos # (Auto) 0.2 (0.0-0.7) 10^3/uL Baso # (Auto) 0.1 (0.0-0.1) 10^3/uL Absolute Nucleated RBC 0.01 x10^3/uL Nucleated RBC % 0.1 /100WBC PT (9.9-12.6) secs INR (0.8-1.2) Sodium 136 (135-145) mmol/L Potassium 4.0 (3.5-5.0) mmol/L Chloride 94 L (101-111) mmol/L Carbon Dioxide 33 H (21-32) mmol/L Anion Gap 9.0 (6-13) BUN 21 H (6-20) mg/dL Creatinine 1.2 (0.6-1.2) mg/dL Estimated GFR (MDRD) 57 L (>89) Glucose 135 H (70-100) mg/dL POC Whole Bld Glucose 213 H (70 - 100) mg/dL Calcium 8.6 (8.5-10.3) mg/dL Phosphorus 3.3 (2.5-4.6) mg/dL B-Natriuretic Peptide (5-100) pg/mL Albumin 3.1 L (3.2-5.5) g/dL TSH (0.34-5.60) uIU/mL Blood Type Antibody Screen Crossmatch IS Only 02/11/19 02/10/19 Range/Units 06:00 16:41 WBC (4.8-10.8) x10^3/uL RBC (4.70-6.10) 10^6/uL Hgb (14.0-18.0) g/dL Hct (42.0-52.0) % MCV (80.0-94.0) fL MCH (27.0-31.0) pg MCHC (32.0-36.0) g/dL RDW (12.0-15.0) % Plt Count (130-450) 10^3/uL MPV (7.4-11.4) fL Neut # (Auto) (1.5-6.6) 10^3/uL Lymph # (Auto) (1.5-3.5) 10^3/uL [place] # (Auto) (0.0-1.0) 10^3/uL Eos # (Auto) (0.0-0.7) 10^3/uL Baso # (Auto) (0.0-0.1) 10^3/uL Absolute Nucleated RBC x10^3/uL Nucleated RBC % /100WBC PT (9.9-12.6) secs INR (0.8-1.2) Sodium (135-145) mmol/L Potassium (3.5-5.0) mmol/L Chloride (101-111) mmol/L Carbon Dioxide (21-32) mmol/L Anion Gap (6-13) BUN (6-20) mg/dL Creatinine (0.6-1.2) mg/dL Estimated GFR (MDRD) (>89) Glucose (70-100) mg/dL POC Whole Bld Glucose (70 - 100) mg/dL Calcium (8.5-10.3) mg/dL Phosphorus (2.5-4.6) mg/dL B-Natriuretic Peptide (5-100) pg/mL Albumin (3.2-5.5) g/dL TSH 1.47 (0.34-5.60) uIU/mL Blood Type A NEGATIVE Antibody Screen NEGATIVE Crossmatch IS Only See Detail - Diagnostic Imaging Diagnostic Imaging Results: positive: Final report reviewed, Read contemporaneously (No evidence of gastric wall thickening or bowel mass. Significant sigmoid and left colon diverticulosis) Assessment/Plan - Problem List (1) Symptomatic anemia Impression: No evidence of any actionable issue on CT. As Van is improving, would continue conservative management. Diverticular disease coupled with anemia of chronic disease is the most likely cause of the issue. Please feel free to call if I can be of further assistance
[2019-02-12] MEDS: RIVAROXABAN 10 MG TABLET PO SCH (16:28)
[2019-02-12] MEDS ORDERED: SODIUM CHLORIDE 0.9% 50 ML IV ONE (21:29)
[2019-02-12] MEDS: ATORVASTATIN 40 MG TABLET PO SCH (21:41)
[2019-02-12] MEDS: TAMSULOSIN 0.4 MG CAPSULE PO SCH (21:41)
[2019-02-12] MEDS: INSULIN GLARGINE 300 UNIT/3 ML PEN SUBQ SCH (21:46)
[2019-02-12] MEDS: ZOLPIDEM 5 MG TABLET PO PRN (21:59)
[2019-02-13] MEDS: SODIUM CHLORIDE FLUSH 0.9% 10 ML SYRINGE IVP SCH ×3 (00:10→17:04)
[2019-02-13 05:51] LABS: BASOPHILS # (AUTO) 0.1 10^3/uL (0.0-0.1); EOSINOPHILS # (AUTO) 0.2 10^3/uL (0.0-0.7); EOSINOPHILS % (AUTO) 3.7 %; HGB - HEMOGLOBIN 8.7 g/dL (14.0-18.0); LYMPHOCYTES # (AUTO) 1.1 10^3/uL (1.5-3.5); LYMPHOCYTES % (AUTO) 17.1 %; MEAN CORPUSCULAR HEMOGLOBIN 21.6 pg (27.0-31.0); MEAN CORPUSCULAR HGB CONC 30.5 g/dL (32.0-36.0); MEAN PLATELET VOLUME 7.3 fL (7.4-11.4); MONOCYTES # (AUTO) 0.7 10^3/uL (0.0-1.0); MONOCYTES % (AUTO) 11.4 %; NEUTROPHILS # (AUTO) 4.3 10^3/uL (1.5-6.6); NEUTROPHILS % (AUTO) 66.8 %; PLT - PLATELET COUNT 205 10^3/uL (130-450); RED BLOOD COUNT 4.02 10^6/uL (4.70-6.10); RED CELL DISTRIBUTION WIDTH 22.1 % (12.0-15.0); WHITE BLOOD COUNT 6.4 x10^3/uL (4.8-10.8)
[2019-02-13 05:59] LABS: INR 3.2 (0.8-1.2); PT - PROTHROMBIN TIME 36.1 secs (9.9-12.6)
[2019-02-13 06:02] LABS: ALBUMIN 3.1 g/dL (3.2-5.5); CALCIUM 8.8 mg/dL (8.5-10.3); CREATININE 1.3 mg/dL (0.6-1.2); PHOSPHORUS 3.5 mg/dL (2.5-4.6)
[2019-02-13] MEDS: PANTOPRAZOLE 40 MG TABLET PO SCH (06:15)
[2019-02-13] MEDS: SUCRALFATE 1 GM/10 ML UDC PO SCH ×4 (06:43→22:17)
[2019-02-13] MEDS: POLYETHYLENE GLYCOL 3350 17 GM PACKET PO SCH (08:13)
[2019-02-13] MEDS: SPIRONOLACTONE 25 MG TABLET PO SCH (08:13)
[2019-02-13] MEDS: DOCUSATE SODIUM 250 MG CAPSULE PO SCH (08:16)
[2019-02-13] MEDS: FERROUS SULFATE 325 MG TABLET PO SCH ×2 (08:16→16:23)
[2019-02-13] MEDS: LOSARTAN 50 MG TABLET PO SCH (08:17)
[2019-02-13] MEDS: METOPROLOL SUCCINATE 25 MG TABLET PO SCH (08:17)
[2019-02-13] MEDS: CHOLECALCIFEROL 5,000 UNIT CAPSULE PO SCH (08:17)
[2019-02-13] MEDS: SENNA 8.6 MG TABLET PO SCH (08:18)
[2019-02-13] MEDS: INSULIN ASPART 300 UNIT/3 ML PEN SUBQ SCH ×4 (08:19→21:22)
[2019-02-13] MEDS: BUMETANIDE IV SCH (09:17)
[2019-02-13] MEDS: SODIUM CHLORIDE 0.9% IV SCH (09:17)
--- NOTE | 2019-02-13 11:58 | MISCELLANEOUS PROVIDER NOTE ---
Miscellaneous Provider Note - - Note: HPI Comment/Other: 88-year-old male With multiple cardiovascular comorbidities to include hypertension, hyperlipidemia, CHF, chronic atrial fibrillation anticoagulated with Coumadin, insulin requiring type 2 diabetes mellitus, morbid obesity, chronic bilateral edema who presents to the emergency department with progressive weakness, orthopnea, dyspnea on exertion, and a 30 pound weight gain with edematous legs. Patient also complains of increased abdominal girth. Patient's BNP was only 177 and was told to come in due to an abnormal hemoglobin of 6.8 found in the ED. Patient goes to the [facility] and his doctor is Dr. Chris Coy who referral to see a manager zone and a GI specialist because he believes that he has upper GI bleed. Patient was recently seenAdmitted over in [place] for coagulopathy related to his INR being supratherapeutic. Patient's initial labs showed a INR of 3.1. Hemoglobin 6.8, creatinine 1.1, BNP 177, glucose 154, chest x-ray showed probable vascular congestion with large bilateral pleural effusions. Ascites seen on exam. Very edematous bilateral lower extremity with chronicity with 4+ edema noted. EKG showed A. fib at 83 bpm with a left bundle branch block. We do not have prior echocardiogram or access to prior medical records. He has wheelchair-bound for the past year and a half. Normally can transfer himself with a bar, but unable to do this secondary to weakness for the past few days. Subjective: Patient seen at bedside with no acute overnight events, no bright red blood per rectum, melena, hematochezia. Patient has improved somewhat in his respiratory status along with increased diureses with urine output of approximately 16.6L. Patient has improved bilateral Lower extremity severe edema. Objective: Vital signs hemodynamically stable, Afebrile, controlled rate A. fib 89 bpm, blood pressure 113/50, RR 20, 95% O2 saturation 2 L nasal cannula. General: Patient is chronically ill-appearing in no acute respiratory distress speaking full sentences. Cooperative and pleasant. HEENT: Positive conjunctival pallor no scleral icterus. NCAT. Neck: Mild JVD, no bruits, no lymphadenopathy, trachea midline, no thyromegaly. CV/lungs: Irregular rate and rhythm. S1-S2 within normal limits. No murmurs, gallops, clicks, rubs. Decreased breath sounds bilaterally with fine rales to bases. No wheezing, no increased work of breath or retractions. Abdomen: Positive ascites, Improved no rebound tenderness, masses, hernias, positive bowel sounds all quadrants. No hepatosplenomegaly. rectal: No scrotal edema. Rectal deferred. Extremities/skin: Improved 2-3+ pitting edema bilateral lower extremity. Dorsalis pedis detectable bilaterally. No maculopapular rashes, ulcers, cyanosis. Labs: Reviewed Imaging studies: Reviewed Assessment/plan: 1. Acute on chronic systolic CHF (congestive heart failure) (Acute), Stage C Patient has improvement to respiratory function as well as severe bilateral lower extremity edema with a total diuresis of 16, 600 ml for his urine output. Ejection fraction of 45 to 50% on echo with severe pulmonary hypertension with RVSP of 74 mmHg. There was evidence of severe right atrial enlargement with associated impairment. There is a component of underlying obstructive sleep apnea with a component of cor pulmonale. Patient would benefit from sleep study as outpatient. This would improve overall apnea and oxygenation which would subsequently improve on his R-sided and Left sided HF. Guideline directed medical therapy to be instituted with metoprolol ER succinate, bisoprolol or equivalent, discontinue atenolol for this matter. Continue with guideline directed medical therapy; Aldactone, Toprol-XL, losartan, may benefit from Entresto., continue with Bumex IV Up titrated to 4 mg twice daily. 2. Chronic hypoxemic respiratory failure This is secondary to patient's chronic underlying sleep apnea with cor pulmonale with pulmonary hypertension and left-sided heart failure. Although patient had been on home O2 this was not his personal home O2 and was being given oxygen by son's girlfriend who had an O2 machine with concentrator that patient would use. Will qualify patient for home O2 use with a pulse oximetry on exertion and at rest. RT study to follow 3. Right-sided heart failure//Cor pulmonale with associated severe pulmonary hypertension This is most likely secondary to patient's obstructive sleep apnea which patient may or may have not been diagnosed previously and is on intermittent home O2 oxygen at home. Patient likely will require sleep study as an outpatient. Will continue with medical management as delineated for patient's stage C heart failure. 4. Multifactorial cause for anemia with suspected Acute blood loss symptomatic anemia Patient with a history of intermittent melena in the past. Currently without brenda bleeding. Patient is iron deficient anemia, Status post 1 dose of IV iron, on ferrous sulfate. Still awaiting for occult blood test x2. First guaiac was negative in ED. Surgery consultation was done, with deferral of endoscopy for now due to high INR, Recommendations are for conservative management, likely anemia of chronic disease superimposed on diverticular disease. CT abdomen pelvis was unremarkable. Continue with H&H monitoring. Transfuse under liberal transfusion protocol less than 8 g/dL due to patient's existing chronic A. fib. Patient has required up to 4 units of PRBCs now. Patient is currently on Xarelto now. CT abdomen pelvis shows liver to have fine nodular contour. Trace ascites. Question chronic liver disease. The gallbladder wall is thickened and there is trace pericholecystic fluid. This may be related to liver disease. There is distal colonic diverticulosis without associated acute inflammatory changes. There are bilateral pleural effusions with adjacent atelectasis, right larger than left. No evidence of colonic masses, or thickened bowels. 5. Leg edema With associated anasarca (Chronic); Improved Likely secondary to right sided heart failure as well as left-sided heart failure. Patient has improved diureses, does not appear to have nephrotic syndrome based on lipid panel, TSH to follow. 6. Bilateral pleural effusion (Acute); Improved Large bilateral pleural effusion seen on chest x-ray. This is likely secondary to patient's ongoing chronic systolic CHF. Patient would probably benefit from thoracenteses. However interventional radiology is not offered here. Will uptitrate to Bumex 4 mg IV twice daily. Patient will receive 2 units of PRBCs in anticipation of fluid overload and with Lasix in between. Patient was started on Aldactone at 25 mg p.o. daily to continue. 7. Chronic a-fib Currently rate controlled. Patient is currently anticoagulated with Xarelto. CHADSVAsc Is 5 points which is 7.2% stroke risk per year. Although he does need to be evaluated for possible anticoagulation with an NOAC this is done at a [id number] basis per up-to-date literature. Previously with supratherapeutic INR. Patient was previously anticoagulated with Coumadin with a therapeutic INR, now his INR is 3.1, Which would be ideal to be closer to 3.0 as patient is nonambulatory functional quadriplegic and would have a history of DVT/PE as well as thromboembolic events 8. Functional plegia with associated chronic deconditoning Patient has been wheelchair-bound for approximately 1.5 years and only uses a bar to lift himself out of bed. Patient certainly has chronic anemia along with his combined right and left-sided heart failure that prohibit him from increased mobility. Physical therapy to make a disposition prior to discharge. Patient to likely receive home health services with home PT/OT versus outpatient PT/OT, qualifies for home oxygen as well. 9. Hyperlipidemia (Chronic Continue with statin 10. Hypertension (Chronic) Continue with BP meds 11. Insulin-requiring or dependent type II diabetes mellitus (Chronic) Continue with bolus and basal coverage. Somewhat uncontrolled with a hemoglobin A1c of 7.9% 12. Advanced care planning/counseling discussion Patient son has discussed that he would rather be on as his D POA. Is requesting to have this changed since son and GF live with patient and are a better surrogate for decision-making then brother who is currently DPOA. CODE STATUS: Patient wants CPR/DNI with limited interventions to include BiPAP CPAP, IV meds, IV antibiotics, and no artificial nutrition. Patient has a living well, POLST updated in [facility].
[2019-02-13] MEDS ORDERED: BUMETANIDE 1 MG/4 ML VIAL ONE (16:10)
[2019-02-13] MEDS: RIVAROXABAN 10 MG TABLET PO SCH (17:00)
[2019-02-13] MEDS: ATORVASTATIN 40 MG TABLET PO SCH (21:18)
[2019-02-13] MEDS: TAMSULOSIN 0.4 MG CAPSULE PO SCH (21:19)
[2019-02-13] MEDS: INSULIN GLARGINE 300 UNIT/3 ML PEN SUBQ SCH (21:24)
[2019-02-13] MEDS: ZOLPIDEM 5 MG TABLET PO PRN (23:54)
[2019-02-14] MEDS: SUCRALFATE 1 GM/10 ML UDC PO SCH ×4 (05:50→21:13)
[2019-02-14] MEDS: PANTOPRAZOLE 40 MG TABLET PO SCH (05:50)
[2019-02-14] MEDS ORDERED: BUMETANIDE 1 MG TABLET PO SCH (06:00)
[2019-02-14 06:11] LABS: ALBUMIN 3.1 g/dL (3.2-5.5); CALCIUM 8.5 mg/dL (8.5-10.3); CREATININE 1.4 mg/dL (0.6-1.2); PHOSPHORUS 3.2 mg/dL (2.5-4.6)
[2019-02-14 06:15] LABS: BASOPHILS # (AUTO) 0.1 10^3/uL (0.0-0.1); BASOPHILS % (AUTO) 1.2 %; EOSINOPHILS # (AUTO) 0.3 10^3/uL (0.0-0.7); EOSINOPHILS % (AUTO) 4.3 %; HGB - HEMOGLOBIN 8.5 g/dL (14.0-18.0); LYMPHOCYTES # (AUTO) 1.2 10^3/uL (1.5-3.5); LYMPHOCYTES % (AUTO) 19.9 %; MEAN CORPUSCULAR HEMOGLOBIN 21.7 pg (27.0-31.0); MEAN CORPUSCULAR HGB CONC 30.1 g/dL (32.0-36.0); MEAN CORPUSCULAR VOLUME 72.3 fL (80.0-94.0); MEAN PLATELET VOLUME 7.1 fL (7.4-11.4); MONOCYTES # (AUTO) 0.8 10^3/uL (0.0-1.0); MONOCYTES % (AUTO) 13.1 %; NEUTROPHILS # (AUTO) 3.6 10^3/uL (1.5-6.6); NEUTROPHILS % (AUTO) 61.5 %; PLT - PLATELET COUNT 202 10^3/uL (130-450); RED BLOOD COUNT 3.89 10^6/uL (4.70-6.10); RED CELL DISTRIBUTION WIDTH 23.8 % (12.0-15.0); WHITE BLOOD COUNT 5.9 x10^3/uL (4.8-10.8)
[2019-02-14 06:18] LABS: INR 2.9 (0.8-1.2); PT - PROTHROMBIN TIME 32.1 secs (9.9-12.6)
[2019-02-14 07:04] LABS: PLATELET MORPHOLOGY NORMAL APPEARANCE (NORMAL)
[2019-02-14 07:05] LABS: PLATELET ESTIMATE, MANUAL NORMAL (130-450,000) (NORMAL)
[2019-02-14] MEDS: INSULIN ASPART 300 UNIT/3 ML PEN SUBQ SCH ×4 (08:48→21:13)
[2019-02-14] MEDS: LOSARTAN 50 MG TABLET PO SCH (09:56)
[2019-02-14] MEDS ORDERED: DIGOXIN 125 MCG TABLET PO ONE (10:00)
[2019-02-14] MEDS: DOCUSATE SODIUM 250 MG CAPSULE PO SCH (10:04)
[2019-02-14] MEDS: CHOLECALCIFEROL 5,000 UNIT CAPSULE PO SCH (10:04)
[2019-02-14] MEDS: FERROUS SULFATE 325 MG TABLET PO SCH ×2 (10:04→17:10)
[2019-02-14] MEDS: SPIRONOLACTONE 25 MG TABLET PO SCH (10:05)
[2019-02-14] MEDS: SENNA 8.6 MG TABLET PO SCH (10:06)
[2019-02-14] MEDS: SODIUM CHLORIDE FLUSH 0.9% 10 ML SYRINGE IVP SCH ×4 (10:06→23:45)
[2019-02-14] MEDS: METOPROLOL SUCCINATE 25 MG TABLET PO SCH (10:06)
[2019-02-14] MEDS: POLYETHYLENE GLYCOL 3350 17 GM PACKET PO SCH (10:06)
--- NOTE | 2019-02-14 13:28 | PROVIDER PROGRESS NOTE ---
Assessment/Plan - Problem List (1) Anasarca Assessment/Plan: The patient has had a 16L neg fluid balance and 20 lb weight loss since diuresis started. The etiology was lijkely his biventricular heart failure. Continue meds for cardiomyopathy and gentle diuresis. (2) Acute on chronic systolic CHF (congestive heart failure) Assessment/Plan: The patient, son and [id number] describe that he has had worsening leg edema for many years, and has been on Bumex 1 mg daily, only recently changed to 3 mg daily. When he last saw the [place] doctor, 1 week ago, there was concern that he was in heart failure and a cardiology referral was to be made in 2 weeks. There was concern that he had significant anemia and therefore GI blood loss and a GI referral was also planned in 2 weeks. The patient presented 2 days later to our ER in severe respiratory distress with orthopnea. He therefore has not had the cardiology evaluation or GI evaluation yet. Continue metoprolol, ARB, loop diuretic and spironolactone. Watch creatinine. Patient will need outpatient cardiac follow-up, cardiac rehab ([facility] to our Cardiac Rehab will be submitted), but is not a candidate for defibrillator with his DNR status and advanced age. (3) CKD (chronic kidney disease) Assessment/Plan: He has new worsening renal function. I suspect cardiorenal syndrome. Continue gentle diuresis: will decrease to once a day loop diuretic, and continue the spironolactone. Watch creatinine daily. (4) Chronic a-fib Assessment/Plan: Heart rate is upper end of normal on his metoprolol succinate. Dig was given earlier this admission. The dig level was quite high at 1.9 yesterday. We will stop dig because of the renal insufficiency and risk of dig toxicity. Continue with his metoprolol, escalating doses if needed, for rate control. Discussion will be done with patient and family members regarding the risks of continuing his anticoagulant (for stroke prophylaxis), since there are 2 guaiac positive stools now, therefore evidence of active GI bleeding. He was felt to be a high risk to undergo an EGD by Dr. Glass. I will request repeat surgery consult to consider EGD and to help in managing the anticoagulant. (5) Insulin-requiring or dependent type II diabetes mellitus Assessment/Plan: Continue with carb controlled diet, sliding scale insulin coverage. (6) Symptomatic anemia Assessment/Plan: Patient required 4 units PRBCs transfused earlier this admission. Following that the hemoglobin has been stable at around 8. The source appeared to be an upper GI bleed with heme positive guiac stools. Monitor CBC daily while here. (7) Heme positive stool Assessment/Plan: UGI bleed suspected. EGD was requested, patient was felt to be a high risk by Dr Glass. Discussed case today with Dr Glass; will treat empirically for gastritis with protonix and sucralfate, which was started several days ago, and [facility] with this. I feel the risks of continued bleeding from GI tract and symptomatic anemia, outweigh the benefits of stroke prophylaxis. (8) Immobility Assessment/Plan: The patient has functional paraplegia from severe dizziness and inability to ambulate, he is in a wheelchair nearly continuously but is able to stand with lift bars and pivot to sit. PT has been working with him and he is still deconditioned. He will be able to pivot into a private vehicle. he qualifies for Home P.T., will order that. Poss [facility] tomorrow. - Current Meds Current Meds: Current Medications Generic Name Dose Route Start Last Admin Trade Name Freq PRN Reason Stop Dose Admin Atorvastatin Calcium 40 mg 02/11/19 21:00 02/13/19 21:18 Lipitor PO 40 mg QPM DEVIN Administration Cholecalciferol 5,000 unit 02/11/19 09:00 02/14/19 10:04 Vitamin D3 PO 5,000 unit DAILY DEVIN Administration Docusate Sodium 250 - 500 mg 02/13/19 09:00 02/14/19 10:04 Colace 250mg Capsule PO 250 mg DAILY DEVIN Administration Ferrous Sulfate 325 mg 02/11/19 17:00 02/14/19 10:04 Feosol PO 325 mg BIDWM DEVIN Administration Insulin Aspart 3 - 11 unit 02/13/19 21:00 02/14/19 12:43 Novolog SUBQ 5 unit 0800,1200,1700,2100 DEVIN Administration Protocol Insulin Glargine 10 unit 02/10/19 21:00 02/13/19 21:24 Lantus Solostar SUBQ 10 unit QPM DEVIN Administration Losartan Potassium 25 mg 02/12/19 09:00 02/14/19 09:56 Cozaar PO Not Given DAILY DEVIN Metoprolol Succinate 25 mg 02/14/19 10:00 02/14/19 10:06 Toprol Xl PO 25 mg DAILY DEVIN Administration Pantoprazole Sodium 40 mg 02/12/19 08:00 02/14/19 05:50 Protonix PO 40 mg QDAC DEVIN Administration Polyethylene Glycol 17 gm 02/11/19 09:00 02/14/19 10:06 Miralax PO Not Given DAILY DEVIN Senna 8.6 - 17.2 mg 02/13/19 09:00 02/14/19 10:06 Senokot PO Not Given DAILY DEVIN Sodium Chloride 10 ml 02/10/19 17:22 02/12/19 22:00 Normal Saline Flush 0.9% IVP 10 ml PRN PRN Administration NEEDED PER PROVIDER ORDERS Sodium Chloride 10 ml 02/11/19 01:00 02/14/19 10:06 Normal Saline Flush 0.9% IVP 10 ml 0100,0900,1700 DEVIN Administration Spironolactone 25 mg 02/11/19 09:00 02/14/19 10:05 Aldactone PO 25 mg DAILY DEVIN Administration Sucralfate 1 gm 02/12/19 11:00 02/14/19 11:38 Carafate PO 1 gm 0700,1100,1600,2200 DEVIN Administration Tamsulosin HCl 0.4 mg 02/11/19 21:00 02/13/19 21:19 Flomax PO 0.4 mg QPM DEVIN Administration Zolpidem Tartrate 5 mg 02/10/19 17:22 02/13/19 23:54 Ambien PO 5 mg QPM PRN Administration Insomnia - Lab Result Fish Bone Diagrams: 02/14/19 05:39 02/14/19 05:39 - Additional Planning My Orders: My Active Orders 02/14/19 General Surgery Consult [CONS] Routine Guiaic [OCCULT BLOOD IN PAT. SINGLE] [RAPID] Urgent 02/14/19 10:00 Metoprolol Succinate [Toprol Xl] 25 mg PO DAILY 02/14/19 17:00 Rivaroxaban [Xarelto] 15 mg PO 1700 02/15/19 05:00 BMP - BASIC METABOLIC PANEL [CHEM] DAILYLAB CBC - COMP BLD CT W/AUTO DIFF [HEME] DAILYLAB 02/15/19 09:00 Bumetanide [Bumex] 2 mg PO DAILY Subjective - Subjective Patient Reports: Feeling Better Objective Vital Signs: Vital Signs - 24 hr 02/13/19 02/13/19 02/13/19 13:30 13:34 16:01 Temperature 36.7 C Heart Rate [ 109 H 73 Brachial] Respiratory 22 18 Rate Blood Pressure [Left Brachial artery] Blood Pressure 106/56 L [Right Brachial artery] O2 Saturation 90 L 95 97 02/13/19 02/13/19 02/14/19 20:30 23:25 04:05 Temperature 36.7 C 36.6 C 36.7 C Heart Rate [ 71 93 89 Brachial] Respiratory 17 16 16 Rate Blood Pressure 104/55 L 92/40 L [Left Brachial artery] Blood Pressure 90/42 L 100/49 L [Right Brachial artery] O2 Saturation 96 94 94 02/14/19 02/14/19 07:41 08:54 Temperature 36.3 C L Heart Rate [ 86 97 Brachial] Respiratory 18 20 Rate Blood Pressure 102/48 L [Left Brachial artery] Blood Pressure 97/49 L [Right Brachial artery] O2 Saturation 96 99 Oxygen O2 Source Nasal cannula I&O (Last 24 Hrs): Intake and Output Totals x24h 02/12/19 02/13/19 02/14/19 23:59 23:59 23:59 Intake Total 1825 1196 1060 Output Total 5993 4100 1785 [facility] -[phone] General: Alert, Oriented x3 HEENT: Mucous membr. moist/pink Neck: Supple, No JVD Neuro: Non Focal Cardiovascular: No murmurs Respiratory: No respiratory distress, Breath sounds nml Abdomen: Soft, No tenderness, Other (Obese) Extremities: Other (1+ edema, skin wrinkled consistent with signofcant edema resolved) - Results Results: Laboratory Results WBC 5.9 x10^3/uL (4.8-10.8) 02/14/19 05:39 RBC 3.89 10^6/uL (4.70-6.10) L 02/14/19 05:39 Hgb 8.5 g/dL (14.0-18.0) L 02/14/19 05:39 Hct 28.1 % (42.0-52.0) L 02/14/19 05:39 MCV 72.3 fL (80.0-94.0) L 02/14/19 05:39 MCH 21.7 pg (27.0-31.0) L 02/14/19 05:39 MCHC 30.1 g/dL (32.0-36.0) L 02/14/19 05:39 RDW 23.8 % (12.0-15.0) H 02/14/19 05:39 Plt Count 202 10^3/uL (130-450) 02/14/19 05:39 MPV 7.1 fL (7.4-11.4) L 02/14/19 05:39 Neut # (Auto) 3.6 10^3/uL (1.5-6.6) 02/14/19 05:39 Lymph # (Auto) 1.2 10^3/uL (1.5-3.5) L 02/14/19 05:39 [place] # (Auto) 0.8 10^3/uL (0.0-1.0) 02/14/19 05:39 Eos # (Auto) 0.3 10^3/uL (0.0-0.7) 02/14/19 05:39 Baso # (Auto) 0.1 10^3/uL (0.0-0.1) 02/14/19 05:39 Absolute Nucleated RBC 0.00 x10^3/uL 02/14/19 05:39 Nucleated RBC % 0.1 /100WBC 02/14/19 05:39 Manual Slide Review Indicated 02/11/19 06:20 WBC Morphology NORMAL APPEARANCE (NORMAL) 02/14/19 05:39 Platelet Estimate NORMAL (130-450,000) (NORMAL) 02/14/19 05:39 Platelet Morphology NORMAL APPEARANCE (NORMAL) 02/14/19 05:39 RBC Morph Micro Appear 3+ HYPOCHROMASIA (NORMAL) 2+ MICROCYTOSIS (NORMAL) 1+ OVALOCYTES (NORMAL) 1+ BASO STIPPLING (NORMAL) 02/10/19 15:44 RBC Morph Micro Appear 3+ HYPOCHROMASIA (NORMAL) 2+ MICROCYTOSIS (NORMAL) 1+ OVALOCYTES (NORMAL) 1+ BASO STIPPLING (NORMAL) 02/10/19 15:44 RBC Morph Micro Appear 1+ ANISOCYTOSIS (NORMAL) 1+ HYPOCHROMASIA (NORMAL) 1+ MICROCYTOSIS (NORMAL) 1+ TARGET CELLS (NORMAL) 1+ OVALOCYTES (NORMAL) 02/11/19 06:20 RBC Morph Micro Appear 1+ ANISOCYTOSIS (NORMAL) 1+ HYPOCHROMASIA (NORMAL) 1+ MICROCYTOSIS (NORMAL) 1+ TARGET CELLS (NORMAL) 1+ OVALOCYTES (NORMAL) 02/11/19 06:20 RBC Morph Micro Appear 1+ ANISOCYTOSIS (NORMAL) 1+ HYPOCHROMASIA (NORMAL) 1+ MICROCYTOSIS (NORMAL) 1+ TARGET CELLS (NORMAL) 1+ OVALOCYTES (NORMAL) 02/11/19 06:20 RBC Morph Micro Appear 1+ ANISOCYTOSIS (NORMAL) 1+ HYPOCHROMASIA (NORMAL) 1+ MICROCYTOSIS (NORMAL) 1+ TARGET CELLS (NORMAL) 1+ OVALOCYTES (NORMAL) 02/11/19 06:20 RBC Morph Micro Appear 1+ ANISOCYTOSIS (NORMAL) 1+ HYPOCHROMASIA (NORMAL) 1+ MICROCYTOSIS (NORMAL) 1+ TARGET CELLS (NORMAL) 1+ OVALOCYTES (NORMAL) 02/11/19 06:20 RBC Morph Micro Appear 2+ ANISOCYTOSIS (NORMAL) 2+ HYPOCHROMASIA (NORMAL) 1+ BASO STIPPLING (NORMAL) 1+ OVALOCYTES (NORMAL) 02/14/19 05:39 RBC Morph Micro Appear 2+ ANISOCYTOSIS (NORMAL) 2+ HYPOCHROMASIA (NORMAL) 1+ BASO STIPPLING (NORMAL) 1+ OVALOCYTES (NORMAL) 02/14/19 05:39 RBC Morph Micro Appear 2+ ANISOCYTOSIS (NORMAL) 2+ HYPOCHROMASIA (NORMAL) 1+ BASO STIPPLING (NORMAL) 1+ OVALOCYTES (NORMAL) 02/14/19 05:39 RBC Morph Micro Appear 2+ ANISOCYTOSIS (NORMAL) 2+ HYPOCHROMASIA (NORMAL) 1+ BASO STIPPLING (NORMAL) 1+ OVALOCYTES (NORMAL) 02/14/19 05:39 PT 32.1 secs (9.9-12.6) H 02/14/19 05:39 INR 2.9 (0.8-1.2) H 02/14/19 05:39 Sodium 138 mmol/L (135-145) 02/14/19 05:39 Potassium 4.0 mmol/L (3.5-5.0) 02/14/19 05:39 Chloride 90 mmol/L (101-111) L 02/14/19 05:39 Carbon Dioxide 37 mmol/L (21-32) H 02/14/19 05:39 Anion Gap 11.0 (6-13) 02/14/19 05:39 BUN 32 mg/dL (6-20) H 02/14/19 05:39 Creatinine 1.4 mg/dL (0.6-1.2) H 02/14/19 05:39 Estimated GFR (MDRD) 48 (>89) L 02/14/19 05:39 Glucose 170 mg/dL (70-100) H 02/14/19 05:39 POC Whole Bld Glucose 159 mg/dL (70 - 100) H 02/13/19 07:26 Glycated Hemoglobin 7.9 % (4.6-6.2) H 02/10/19 16:32 Estim Average Glucose 180 (70-100) H 02/10/19 16:32 Calcium 8.5 mg/dL (8.5-10.3) 02/14/19 05:39 Phosphorus 3.2 mg/dL (2.5-4.6) 02/14/19 05:39 Iron 11 ug/dL (45-182) L 02/10/19 15:44 TIBC 396 ug/dL (250-450) 02/10/19 15:44 % Saturation 3 % (20-50) L 02/10/19 15:44 Transferrin 283 mg/dL (180-329) 02/10/19 15:44 Total Bilirubin 0.7 mg/dL (0.2-1.0) 02/10/19 15:44 AST 15 IU/L (10-42) 02/10/19 15:44 ALT 11 IU/L (10-60) 02/10/19 15:44 Alkaline Phosphatase 52 IU/L (42-121) 02/10/19 15:44 B-Natriuretic Peptide 92 pg/mL (5-100) 02/14/19 05:39 Total Protein 6.4 g/dL (6.7-8.2) L 02/10/19 15:44 Albumin 3.1 g/dL (3.2-5.5) L 02/14/19 05:39 Globulin 3.1 g/dL (2.1-4.2) 02/10/19 15:44 Albumin/Globulin Ratio 1.1 (1.0-2.2) 02/10/19 15:44 Triglycerides 59 mg/dL (-149) 02/11/19 06:20 Cholesterol 84 mg/dL (-199) 02/11/19 06:20 LDL Cholesterol, Calc 33 mg/dL (-129) 02/11/19 06:20 VLDL Cholesterol 12 mg/dL 02/11/19 06:20 HDL Cholesterol 39 mg/dL (60-) L 02/11/19 06:20 LDL/HDL Ratio 0.8 (<3.6) 02/11/19 06:20 Cholesterol/HDL Ratio 2.2 (<5.0) 02/11/19 06:20 Lipase 28 U/L (22-51) 02/10/19 15:44 TSH 1.47 uIU/mL (0.34-5.60) 02/11/19 06:00 Stl Occult Blood (IFOB) POSITIVE (NEGATIVE) A 02/13/19 12:55 Blood Type A NEGATIVE 02/10/19 16:41 Blood Type Recheck A NEGATIVE 02/10/19 15:44 Antibody Screen NEGATIVE 02/10/19 16:41 Crossmatch IS Only See Detail 02/10/19 16:41
--- NOTE | 2019-02-14 15:17 | PROVIDER PROGRESS NOTE ---
Subjective - Prog Note Date Prog Note Date: 02/14/19 Prog Note Time: 15:16 - Subjective Subjective: I spoke briefly with the hospitalist team regarding Mr. Dawn. After carefully considering all of the information including variably guaiac positive stools and essentially normal CT scan showing diverticulosis, we have elected to treat him presumptively for diffuse gastritis. I feel that, at least at this time, this is the safest and most reasonable choice.I am in complete agreement with the hospitalist plan. Objective - Vital Signs/Intake & Output Vital Signs: Vital Signs x48h Temp Pulse Resp BP BP Pulse Ox 02/14/19 13:00 36.7 C 81 18 107/49 L 98 02/14/19 08:54 97 20 97/49 L 99 02/14/19 07:41 36.3 C L 86 18 102/48 L 96 Intake & Output: Intake & Output 02/11/19 02/12/19 02/13/19 02/14/19 23:59 23:59 23:59 23:59 Intake Total 2456 1825 1196 1060 Output Total 5892 5970 4100 1650 [facility] -[phone] - Lab Results Fish Bones: 02/14/19 05:39 02/14/19 05:39 Other Labs: Lab Results x24hrs 02/14/19 02/14/19 02/14/19 Range/Units 05:39 05:39 05:39 WBC 5.9 (4.8-10.8) x10^3/uL RBC 3.89 L (4.70-6.10) 10^6/uL Hgb 8.5 L (14.0-18.0) g/dL Hct 28.1 L (42.0-52.0) % MCV 72.3 L (80.0-94.0) fL MCH 21.7 L (27.0-31.0) pg MCHC 30.1 L (32.0-36.0) g/dL RDW 23.8 H (12.0-15.0) % Plt Count 202 (130-450) 10^3/uL MPV 7.1 L (7.4-11.4) fL Neut # (Auto) 3.6 (1.5-6.6) 10^3/uL Lymph # (Auto) 1.2 L (1.5-3.5) 10^3/uL [place] # (Auto) 0.8 (0.0-1.0) 10^3/uL Eos # (Auto) 0.3 (0.0-0.7) 10^3/uL Baso # (Auto) 0.1 (0.0-0.1) 10^3/uL Absolute Nucleated RBC 0.00 x10^3/uL Nucleated RBC % 0.1 /100WBC WBC Morphology NORMAL APPEARANCE (NORMAL) Platelet Estimate NORMAL (130-450,000) (NORMAL) Platelet Morphology NORMAL APPEARANCE (NORMAL) RBC Morph Micro Appear 1+ OVALOCYTES (NORMAL) PT (9.9-12.6) secs INR (0.8-1.2) Sodium 138 (135-145) mmol/L Potassium 4.0 (3.5-5.0) mmol/L Chloride 90 L (101-111) mmol/L Carbon Dioxide 37 H (21-32) mmol/L Anion Gap 11.0 (6-13) BUN 32 H (6-20) mg/dL Creatinine 1.4 H (0.6-1.2) mg/dL Estimated GFR (MDRD) 48 L (>89) Glucose 170 H (70-100) mg/dL Calcium 8.5 (8.5-10.3) mg/dL Phosphorus 3.2 (2.5-4.6) mg/dL B-Natriuretic Peptide 92 (5-100) pg/mL Albumin 3.1 L (3.2-5.5) g/dL 02/14/19 Range/Units 05:39 WBC (4.8-10.8) x10^3/uL RBC (4.70-6.10) 10^6/uL Hgb (14.0-18.0) g/dL Hct (42.0-52.0) % MCV (80.0-94.0) fL MCH (27.0-31.0) pg MCHC (32.0-36.0) g/dL RDW (12.0-15.0) % Plt Count (130-450) 10^3/uL MPV (7.4-11.4) fL Neut # (Auto) (1.5-6.6) 10^3/uL Lymph # (Auto) (1.5-3.5) 10^3/uL [place] # (Auto) (0.0-1.0) 10^3/uL Eos # (Auto) (0.0-0.7) 10^3/uL Baso # (Auto) (0.0-0.1) 10^3/uL Absolute Nucleated RBC x10^3/uL Nucleated RBC % /100WBC WBC Morphology (NORMAL) Platelet Estimate (NORMAL) Platelet Morphology (NORMAL) RBC Morph Micro Appear (NORMAL) PT 32.1 H (9.9-12.6) secs INR 2.9 H (0.8-1.2) Sodium (135-145) mmol/L Potassium (3.5-5.0) mmol/L Chloride (101-111) mmol/L Carbon Dioxide (21-32) mmol/L Anion Gap (6-13) BUN (6-20) mg/dL Creatinine (0.6-1.2) mg/dL Estimated GFR (MDRD) (>89) Glucose (70-100) mg/dL Calcium (8.5-10.3) mg/dL Phosphorus (2.5-4.6) mg/dL B-Natriuretic Peptide (5-100) pg/mL Albumin (3.2-5.5) g/dL
[2019-02-14] MEDS ORDERED: RIVAROXABAN 15 MG TABLET PO SCH (17:00)
[2019-02-14] MEDS: ATORVASTATIN 40 MG TABLET PO SCH (21:12)
[2019-02-14] MEDS: TAMSULOSIN 0.4 MG CAPSULE PO SCH (21:13)
[2019-02-14] MEDS: INSULIN GLARGINE 300 UNIT/3 ML PEN SUBQ SCH (21:13)
[2019-02-14] MEDS: ZOLPIDEM 5 MG TABLET PO PRN (22:26)
[2019-02-15 05:59] LABS: BASOPHILS # (AUTO) 0.1 10^3/uL (0.0-0.1); EOSINOPHILS # (AUTO) 0.3 10^3/uL (0.0-0.7); EOSINOPHILS % (AUTO) 5.3 %; HGB - HEMOGLOBIN 7.7 g/dL (14.0-18.0); LYMPHOCYTES % (AUTO) 17.9 %; MEAN CORPUSCULAR HEMOGLOBIN 21.2 pg (27.0-31.0); MEAN CORPUSCULAR HGB CONC 27.2 g/dL (32.0-36.0); MEAN PLATELET VOLUME 9.4 fL (7.4-11.4); MONOCYTES # (AUTO) 0.8 10^3/uL (0.0-1.0); MONOCYTES % (AUTO) 14.3 %; NEUTROPHILS # (AUTO) 3.5 10^3/uL (1.5-6.6); PLT - PLATELET COUNT 185 10^3/uL (130-450); RED BLOOD COUNT 3.63 10^6/uL (4.70-6.10); RED CELL DISTRIBUTION WIDTH 22.9 % (12.0-15.0); WHITE BLOOD COUNT 5.8 x10^3/uL (4.8-10.8)
[2019-02-15 06:06] LABS: CALCIUM 8.5 mg/dL (8.5-10.3); CREATININE 1.2 mg/dL (0.6-1.2)
[2019-02-15 06:36] LABS: PLATELET ESTIMATE, MANUAL NORMAL (130-450,000) (NORMAL); PLATELET MORPHOLOGY NORMAL APPEARANCE (NORMAL)
[2019-02-15] MEDS: PANTOPRAZOLE 40 MG TABLET PO SCH (06:38)
[2019-02-15] MEDS: SUCRALFATE 1 GM/10 ML UDC PO SCH ×2 (07:48→12:32)
[2019-02-15] MEDS: INSULIN ASPART 300 UNIT/3 ML PEN SUBQ SCH ×2 (08:19→12:32)
[2019-02-15] MEDS: SPIRONOLACTONE 25 MG TABLET PO SCH (08:20)
[2019-02-15] MEDS: METOPROLOL SUCCINATE 25 MG TABLET PO SCH (08:20)
[2019-02-15] MEDS: DOCUSATE SODIUM 250 MG CAPSULE PO SCH (08:20)
[2019-02-15] MEDS: FERROUS SULFATE 325 MG TABLET PO SCH (08:20)
[2019-02-15] MEDS: POLYETHYLENE GLYCOL 3350 17 GM PACKET PO SCH (08:21)
[2019-02-15] MEDS: CHOLECALCIFEROL 5,000 UNIT CAPSULE PO SCH (08:21)
[2019-02-15] MEDS: SENNA 8.6 MG TABLET PO SCH (08:21)
[2019-02-15] MEDS: LOSARTAN 50 MG TABLET PO SCH (08:21)
[2019-02-15] MEDS: SODIUM CHLORIDE FLUSH 0.9% 10 ML SYRINGE IVP SCH (08:22)
[2019-02-15] MEDS ORDERED: BUMETANIDE 1 MG TABLET PO SCH (09:00)
--- NOTE | 2019-02-15 11:22 | Discharge Plan ---
Discharge Plan Disposition: Home Health Service Condition: Stable Prescriptions: Bumetanide [Bumex] 2 mg PO DAILY #30 tablet Ferrous Sulfate 325 mg PO BID #60 tablet Losartan [Cozaar] 25 mg PO QPM #30 tablet Metoprolol Succinate [Toprol Xl] 25 mg PO DAILY #30 tablet Pantoprazole [Protonix] 40 mg PO QDAC #30 tablet Spironolactone [Aldactone] 25 mg PO DAILY #30 tablet Sucralfate [Carafate] 1 gm PO QID #600 ml Diet: Low Sodium (Resume your diabetic diet.) Activity Restrictions: Wt Bearing as Tolerated Shower Restrictions: No Driving Restrictions: Yes Assistance Devices: Wheelchair Instruction Topics: Anemia Ch, Anemia, Heart Failure, Heart Failure Tracking Weight, Heart Failure Diet Changes Health Concerns: New CHF New GI bleeding causing symptomatic anemia Plan of Treatment: Start new medications for the heart and new home oxygen. Stop the blood thinner. Treat the presumed gastritis. Care Goals: The patient wants to be able to return home and function without the breathlessness and severe leg swelling. Assessment: He is agreeable to follow new medication changes and have Physical Therapy at home. Additional Instructions or Follow Up instructions: You are admitted with fluid overload related to a weak heart, which was diagnosed with blood tests, chest x-ray and ultrasound picture of the heart (Echocardiogram). Your medications were changed to help drain the fluid. Please take the new medications as listed here. The new prescriptions were electronically sent to your pharmacy. We documented that you have bleeding in your stomach or intestines, therefore the blood thinner should be stopped, at least temporarily. Also, take the planned medications for treating a bleeding ulcer and iron replacement tablets. Home Health service was ordered for you to have a a Nurse, bath aide, Physical Therapy and Occupational Therapy, in your home. You do need follow-up with a Alliances Consultant and Driveway Sealer, as planned by the [place]. If you have new or worsening symptoms, call your PCP or come to the ER. Follow-Up Care: Home Health - RN, Home Health - PT, Home Health - OT No Smoking: If you smoke, Please STOP! Call for help. Follow-up with: Chris Coy MD [Primary Care Provider] -
[2019-02-15 12:22] VITALS: BP 94/59
--- NOTE | 2019-02-15 21:10 | DISCHARGE SUMMARY ---
Physician: Paulette De La Torre MD DATE OF ADMISSION: 02/10/2019 DATE OF DISCHARGE: 02/15/2019 HISTORY OF PRESENT ILLNESS: This is an 88-year-old white male with a history of hypertension, hyperlipidemia, chronic atrial fibrillation on Coumadin, insulin- dependent diabetes, obesity, leg edema for many months for which he was on Bumex, being managed [facility]. The patient says that his diuretic was minimally increased recently when the leg edema got worse and he started to get abdominal bloating and then shortness of breath. Apparently a low hemoglobin was found, and he was also supratherapeutic on his INR; therefore, there was concern of an upper gastrointestinal bleed. At the last [facility] appointment, he was told he should see a consulting services associate and a assembler adjuster, which would be arranged for him in two weeks. The patient worsened while waiting for these appointments and presented to the emergency room with orthopnea, anasarca, bilateral pleural effusions, ascites and 4+ leg edema. He was admitted for management of anasarca, heart failure, diabetes, and chronic atrial fibrillation. HOSPITAL COURSE AND DISCHARGE DIAGNOSES 1. Anasarca. The patient was started on IV diuretics b.i.d. He had a slow, but dramatic diuresis of 17 liters of fluid during this hospital stay. His ascites completely resolved, his lungs were clear with no rales or signs of pleural effusion at discharge, and his leg edema improved from 4+ down to 1+ with obvious wrinkling of the skin of his shins. He was discharged on different meds and diuretics. 2. [id number] systolic heart failure, Rich Heart Association class II, ACC/A, stage 3. Search for etiologies of his volume overload were undertaken. Troponins were negative x3. He had a resting Echo done that showed global LV hypokinesis with an EF of 35%. His medications were therefore adjusted: Atenolol was changed to Metoprolol, his lisinopril was changed to Losartan because of his dyspnea and possible cough from JUSTIN, his Bumex was increased, and his new Spironolactone was started. The patient has a DNR status, therefore, he is not a candidate for a defibrillator even with this low ejection fraction. He is not cardiac rehab candidate because he is immobile, uses a motorized wheelchair only. The patient does need his cardiology followup for medication adjustment and management of his newly diagnosed cardiomyopathy. Etiologies could be rapid atrial fibrillation or demand ischemia from marked anemia (see below) or diffuse coronary disease. The patient required supplemental oxygen while here because of desaturating to 80%-85% on room air. He was put on 2 liters nasal cannula. Prior to discharge, he was tested on room air and was found to be hypoxic at rest with a room air oxygen saturation of 83%. At rest on 2 liters per minute nasal cannula, on his final day, his oxygen saturations improved to 94%. With mild exertion with transferring to a chair on 2 liters per minute nasal cannula, his O2 saturations were 94%. Please note, the patient is nonambulatory and uses a motorized wheelchair for mobility. I am ordering home oxygen, set at 2 liters per minute continuous, to help treat his acute on chronic congestive systolic heart failure. 3. Cor pulmonale. The Echo also found a very dilated right ventricle with severely depressed RV function and pulmonary hypertension. He was managed with the above congestive heart failure medications as described. 4. Chronic hypoxic respiratory failure. This patient's respiratory distress was multifactorial: from cor pulmonale, LV systolic failure, pleural effusions. Medications were started for treating these. 5. Acute blood loss anemia. The patient had two guaiac stool exams, which were both Hemoccult positive. His admission hemoglobin was 6.8. He received 4 units of packed red blood cell transfused with diuretics in between and the hemoglobin candi to 8. Hemoglobin was followed daily and oscillated between a hemoglobin of 8.7 and was 7.7 on the day of discharge. He was started on oral iron replacement therapy. He had consultation with general surgery for an EGD. He was felt to have an excessively high risk to undergo conscious sedation for EGD and the presumed findings would be gastritis. A CT scan was done that did not show any tics, areas of hemorrhage or gastric wall thickening to suggest a gastric ulcer. He was therefore started on empiric treatment with Protonix and Sucralfate and was discharged with these new medicines. 6. Chronic atrial fibrillation. The patient's overall heart rate was only mildly elevated at 90-105, and his Metoprolol dose was adjusted for better rate control. His Coumadin was discontinued when he had presented (the INR was 3.1). He was offered treatment with novel anticoagulants, and he was started on Xarelto in its place. Because of the repeat heme positive stools, however, discussion was undertaken as to risk of stroke without anticoagulation versus continued bleeding on anticoagulation and he was discharged without any anticoagulation. He was to continue his baby aspirin daily, which was a previous chronic medicine. 7. Insulin requiring/dependent type 2 diabetes. The patient was on a carb- controlled diet, kept on his usual management of diabetes. His A1c done here at admission was 7.9, indicating fairly good control. 8. Hypertension. The patient's medicines were adjusted using the diuretics and beta blockers for better blood pressure control. 9. Physical deconditioning. Physical therapy was ordered for this patient, but his maximum activity is only to stand and pivot into a motorized wheelchair. Therefore, home health PT (along with a bath aide and RN) were ordered at the time of discharge. 10. Immobility. This patient has had chronic minimal activity, has multiple poles and bars built into his herrera of his home in order to be able to do the stand and pivot to a wheelchair. 11. Morbid obesity. A carb-controlled, calorie-controlled diet was ordered while here. 12. Hyperlipidemia. The patient was kept on his statin while here. LABS AND IMAGING: Reviewed and summarized above. ALLERGIES: None. MEDICATIONS AT DISCHARGE: Aspirin 81 mg daily Vitamin D3 5000 units daily Multivitamin daily Simvastatin 40 mg every night Flomax 0.4 mg every night Bumex 2 mg daily Ferrous Sulfate 325 mg twice daily Glargine Lantus Solostar Insulin 10 units subq every evening Cozaar 25 mg every night Toprol-XL 25 mg daily Protonix 40 mg every morning Spironolactone 25 mg daily Carafate 1 gm (10 mL) 4 times daily CONDITION AT DISCHARGE: Stable. PHYSICAL EXAMINATION VITAL SIGNS: Blood pressure 105/50, heart rate 80-90 in atrial fibrillation, afebrile, saturation 97% on 2 liters nasal cannula. HEENT: Unremarkable. NECK: Without JVD in a vertical position. CHEST: Clear. HEART: Irregular. No murmurs are audible. ABDOMEN: Soft. No fluid wave. EXTREMITIES: 1+ edema to the knees with wrinkling of the skin, and venous stasis changes present of both shins. NEUROLOGIC: Grossly intact. FOLLOWUP: He was advised to see his PCP in the next one to two weeks, and to keep the planned appointment to Cardiology in two weeks and GI in two weeks, arranged by the [facility]. CODE STATUS: DNR. Time required to complete this entire discharge, chart review, patient education, new prescription orders, dictation: Sixty minutes. cc: Crhis Coy MD TD: 02/15/2019 20:15 MTDD
== END 2019-02-15 13:45 | disposition home health service (06) | DRG 377 ==
LOC: ED 14:50 → MS2 17:22
PROVIDERS: ADMIT Family Medicine; ATTEND Internal Medicine
PROC: 30233N1 Transfusion of Nonautologous Red Blood Cells into Peripheral Vein, Percutaneous Approach (ICD-10-PCS; principal; 2019-02-10)
DX: D64.9 Anemia, unspecified (principal); I11.0 Hypertensive heart disease with heart failure; I50.9 Heart failure, unspecified; J81.0 Acute pulmonary edema; K29.61 Other gastritis with bleeding; I48.91 Unspecified atrial fibrillation; I50.23 Acute on chronic systolic (congestive) heart failure; I13.0 Hypertensive heart and chronic kidney disease with heart failure and stage 1 through stage 4 chronic kidney disease, or unspecified chronic kidney disease; J96.11 Chronic respiratory failure with hypoxia; D62 Acute posthemorrhagic anemia; G82.20 Paraplegia, unspecified; N18.9 Chronic kidney disease, unspecified; E11.22 Type 2 diabetes mellitus with diabetic chronic kidney disease; I48.2 Chronic atrial fibrillation; I27.81 Cor pulmonale (chronic); G47.33 Obstructive sleep apnea (adult) (pediatric); I27.23 Pulmonary hypertension due to lung diseases and hypoxia; I50.810 Right heart failure, unspecified; D50.9 Iron deficiency anemia, unspecified; E66.01 Morbid (severe) obesity due to excess calories; Z68.35 Body mass index [BMI] 35.0-35.9, adult; E78.5 Hyperlipidemia, unspecified; I44.7 Left bundle-branch block, unspecified; N40.0 Benign prostatic hyperplasia without lower urinary tract symptoms; Z99.3 Dependence on wheelchair; Z99.81 Dependence on supplemental oxygen; Z66 Do not resuscitate; Z79.01 Long term (current) use of anticoagulants; Z79.4 Long term (current) use of insulin; Z79.82 Long term (current) use of aspirin
CPT/HCPCS: 36415; 71046; 74177; 80048; 80053; 80061; 80069; 82272; 82274; 83036; 83540; 83690; 83880; 84443; 84466; 85025; 85610; 86850; 86900; 86901; 86920; 93005; 93306; 94761; 96374; 97110; 97162; 97530; 99284; 99285; A9270; J1815; J2916; J7040; P9016; Q9967; 82040; 83721

== ENCOUNTER 2019-05-19 09:03 | Observation (INO) | payer MEDICARE, OTHER ==
--- NOTE | 2019-05-19 09:43 | ED Physician Documentation ---
History of Present Illness - Stated complaint Stated Complaint: LIGHT HEADED - Chief complaint Chief Complaint: Cardiac - History obtained from History obtained from: Patient - Additonal information Additional information: The patient is an 88-year-old male with history of insulin-dependent diabetes, CVA, CHF, and chronic atrial fibrillation, who presents with lightheadedness that has been getting progressively worse over the past week or 2. It is worse when standing. This morning he felt more lightheaded than usual, and experienced blurred vision and slurred speech when standing. He denies as sociated chest pain, shortness of breath, fever, nausea or vomiting, or dysuria. He was hospitalized here 2 months ago with congestive heart failure and anemia. He underwent diuresis of 17 L at that time, and transfusion 4 units packed cells. GI work-up for possible source of bleeding was not pursued at that time, as the patient was considered too high risk. Review of Systems Constitutional: reports: Fatigue. denies: Fever Ears: denies: Tinnitus/ringing Nose: denies: Congestion Throat: denies: Sore throat Cardiac: denies: Chest pain / pressure Respiratory: denies: Dyspnea, Cough GI: denies: Abdominal Pain, Nausea, Vomiting : denies: Dysuria Skin: denies: Rash Musculoskeletal: reports: Extremity swelling Neurologic: reports: Generalized weakness. denies: Focal weakness, Numbness, Syncope, Headache PD PAST MEDICAL HISTORY - Past Medical History Cardiovascular: Congestive heart failure, Hypertension, Atrial fibrillation Respiratory: Shortness of breath, Sleep apnea Neuro: CVA, Peripheral neuropathy Endocrine/Autoimmune: Type 2 diabetes : Nocturia, Frequency Derm: Other - Past Surgical History Past Surgical History: Yes - Present Medications Home Medications: Ambulatory Orders Medication Instructions Recorded Confirmed Aspirin [Aspirin EC] 81 mg PO DAILY 02/10/19 02/11/19 Cholecalciferol [Vitamin D3] 5,000 unit PO DAILY 02/10/19 02/11/19 Multivit-Min/FA/Lycopen/Lutein 1 each PO DAILY 02/10/19 02/11/19 [Centrum Silver Men Tablet] Tamsulosin HCl [Flomax] 0.4 mg PO QPM 02/10/19 02/11/19 Bumetanide [Bumex] 2 mg PO DAILY #30 tablet 02/15/19 Ferrous Sulfate 325 mg PO BID #60 tablet 02/15/19 Insulin Glargine [Lantus Solostar] 10 unit SUBQ QPM pen 02/15/19 Metoprolol Succinate [Toprol Xl] 25 mg PO DAILY #30 tablet 02/15/19 Pantoprazole [Protonix] 40 mg PO QDAC #30 tablet 02/15/19 Spironolactone [Aldactone] 25 mg PO DAILY #30 tablet 02/15/19 Sucralfate [Carafate] 1 gm PO QID #600 ml 02/15/19 - Allergies Allergies/Adverse Reactions: Allergies Allergy/AdvReac Type Severity Reaction Status Date / Time No Known Drug Allergies Allergy Verified 02/10/19 15:09 - Social History Does the pt smoke?: No Smoking Status: Never smoker Does the pt drink ETOH?: No Does the pt have substance abuse?: No - Immunizations Immunizations are current?: Yes PD ED PE NORMAL - Vitals Vital signs reviewed: Yes (tachycardic) - General General: Alert and oriented X 3, Well developed/nourished, Other (Appears pale.) - HEENT HEENT: Atraumatic, PERRL, EOMI, Pharynx benign - Neck Neck: No adenopathy, No JVD (at 20 degrees elevation.) - Cardiac Cardiac: Other (Rapid rate, regular rhythm.) - Respiratory Respiratory: Clear bilaterally - Abdomen Abdomen: Soft, Non tender - Back Back: No CVA TTP - Derm Derm: No rash - Extremities Extremities: No calf tenderness / cord, Other (2+ pedal edema bilaterally, more on the left than the right.) - Neuro Neuro: Alert and oriented X 3, No motor deficit, Normal speech, Other (General w eakness, with no acute focal motor or sensory deficit.) PD ED PE EXPANDED - Rectal Rectal: Heme Occult Pos - QC + Results - Vitals Vitals: Vital Signs - 24 hr 05/19/19 05/19/19 05/19/19 09:13 09:47 10:20 Temperature 36.2 C L Heart Rate 103 H 78 55 L Respiratory 18 16 12 Rate Blood Pressure 119/63 130/52 L 115/68 O2 Saturation 94 96 96 Oxygen O2 Source Room air - EKG (time done) 09:15 Rate: Rate (enter#) (92) Rhythm: Atrial fibrillation [place]: Normal Intervals: Other (IVCD.) Ischemia: Non specific changes Compare to prior EKG: Unchanged from prior EKG - Labs Labs: Laboratory Tests 05/19/19 05/19/19 05/19/19 09:22 09:22 09:22 WBC 7.9 RBC 2.46 L Hgb 6.7 L* Hct 23.3 L MCV 94.7 H MCH 27.2 MCHC 28.8 L RDW 14.7 Plt Count 312 MPV 9.4 Neut # (Auto) 5.2 Lymph # (Auto) 1.6 Bollinger # (Auto) 0.6 Eos # (Auto) 0.3 Baso # (Auto) 0.1 Absolute Nucleated RBC 0.00 Nucleated RBC % 0.0 Manual Slide Review Indicated Platelet Estimate NORMAL (130-450,000) Platelet Morphology NORMAL APPEARANCE RBC Morph Micro Appear 1+ ANISOCYTOSIS PT 11.6 INR 1.0 APTT 27.9 Sodium 136 Potassium 3.7 Chloride 100 L Carbon Dioxide 28 Anion Gap 8.0 BUN 33 H Creatinine 1.4 H Estimated GFR (MDRD) 48 L Glucose 235 H Calcium 8.9 Iron TIBC Transferrin Ferritin Total Bilirubin 0.4 AST 12 ALT 11 Alkaline Phosphatase 42 Lactate Dehydrogenase Troponin I High Sens B-Natriuretic Peptide Total Protein 6.1 L Albumin 3.2 Globulin 2.9 Albumin/Globulin Ratio 1.1 Lipase 30 Vitamin B12 Urine Color Urine Clarity Urine pH Ur Specific [place] Urine Protein Urine Glucose (UA) Urine Ketones Urine Occult Blood Urine Nitrite Urine Bilirubin Urine Urobilinogen Ur Leukocyte Esterase Urine RBC Urine WBC Urine WBC Clumps Ur Squamous Epith Cells Urine Bacteria Ur Microscopic Review Urine Culture Comments Blood Type Antibody Screen Crossmatch IS Only 05/19/19 05/19/19 05/19/19 09:22 09:22 09:22 WBC RBC Hgb Hct MCV MCH MCHC RDW Plt Count MPV Neut # (Auto) Lymph # (Auto) [place]linger # (Auto) Eos # (Auto) Baso # (Auto) Absolute Nucleated RBC Nucleated RBC % Manual Slide Review Platelet Estimate Platelet Morphology RBC Morph Micro Appear PT INR APTT Sodium Potassium Chloride Carbon Dioxide Anion Gap BUN Creatinine Estimated GFR (MDRD) Glucose Calcium Iron TIBC Transferrin Ferritin Total Bilirubin AST ALT Alkaline Phosphatase Lactate Dehydrogenase Troponin I High Sens 25.8 H* B-Natriuretic Peptide 138 H Total Protein Albumin Globulin Albumin/Globulin Ratio Lipase Vitamin B12 Urine Color Urine Clarity Urine pH Ur Specific [place] Urine Protein Urine Glucose (UA) Urine Ketones Urine Occult Blood Urine Nitrite Urine Bilirubin Urine Urobilinogen Ur Leukocyte Esterase Urine RBC Urine WBC Urine WBC Clumps Ur Squamous Epith Cells Urine Bacteria Ur Microscopic Review Urine Culture Comments Blood Type A NEGATIVE Antibody Screen NEGATIVE Crossmatch IS Only 05/19/19 05/19/19 05/19/19 09:22 09:22 09:22 WBC RBC Hgb Hct MCV MCH MCHC RDW Plt Count MPV Neut # (Auto) Lymph # (Auto) [place]linger # (Auto) Eos # (Auto) Baso # (Auto) Absolute Nucleated RBC Nucleated RBC % Manual Slide Review Platelet Estimate Platelet Morphology RBC Morph Micro Appear PT INR APTT Sodium Potassium Chloride Carbon Dioxide Anion Gap BUN Creatinine Estimated GFR (MDRD) Glucose Calcium Iron < 6 L TIBC 365 Transferrin 261 Ferritin 17.1 L Total Bilirubin AST ALT Alkaline Phosphatase Lactate Dehydrogenase Troponin I High Sens B-Natriuretic Peptide Total Protein Albumin Globulin Albumin/Globulin Ratio Lipase Vitamin B12 351 Urine Color Urine Clarity Urine pH Ur Specific [place] Urine Protein Urine Glucose (UA) Urine Ketones Urine Occult Blood Urine Nitrite Urine Bilirubin Urine Urobilinogen Ur Leukocyte Esterase Urine RBC Urine WBC Urine WBC Clumps Ur Squamous Epith Cells Urine Bacteria Ur Microscopic Review Urine Culture Comments Blood Type Cancelled Antibody Screen Cancelled Crossmatch IS Only See Detail 05/19/19 05/19/19 09:22 10:20 WBC RBC Hgb Hct MCV MCH MCHC RDW Plt Count MPV Neut # (Auto) Lymph # (Auto) [place] # (Auto) Eos # (Auto) Baso # (Auto) Absolute Nucleated RBC Nucleated RBC % Manual Slide Review Platelet Estimate Platelet Morphology RBC Morph Micro Appear PT INR APTT Sodium Potassium Chloride Carbon Dioxide Anion Gap BUN Creatinine Estimated GFR (MDRD) Glucose Calcium Iron TIBC Transferrin Ferritin Total Bilirubin AST ALT Alkaline Phosphatase Lactate Dehydrogenase 71 L Troponin I High Sens B-Natriuretic Peptide Total Protein Albumin Globulin Albumin/Globulin Ratio Lipase Vitamin B12 Urine Color YELLOW Urine Clarity SL. CLOUDY Urine pH 5.5 Ur Specific [place] 1.010 Urine Protein NEGATIVE Urine Glucose (UA) NEGATIVE Urine Ketones NEGATIVE Urine Occult Blood NEGATIVE Urine Nitrite POSITIVE H Urine Bilirubin NEGATIVE Urine Urobilinogen 0.2 (NORMAL) Ur Leukocyte Esterase LARGE H Urine RBC 0-5 Urine WBC >25 H Urine WBC Clumps PRESENT Ur Squamous Epith Cells RARE Squamous Urine Bacteria Few Ur Microscopic Review INDICATED Urine Culture Comments INDICATED Blood Type Antibody Screen Crossmatch IS Only PD MEDICAL DECISION MAKING - ED course Complexity details: reviewed old records, reviewed results, re-evaluated patient, considered differential, d/w patient, d/w organization development consultant ED course: The patient's presentation is significant for symptomatic anemia, with hemoglobin of 6.7 and hematocrit 23.3. Rectal exam reveals black heme positive stool. His electrocardiogram reveals atrial fibrillation, without acute ischemic abnormalities. Urinalysis is significant for pyuria and bacteriuria, consistent with urinary tract infection. Treatment in the emergency department included type and crossmatch for packed red blood cell transfusion. I discussed his condition with Dr. Vivas, who accepts him for further evaluation and treatment. Departure - Departure Disposition: ED Place in Observation Clinical Impression: Symptomatic anemia, Chronic a-fib, Insulin-requiring or dependent type II diabetes mellitus, Leg edema UTI (urinary tract infection) Qualifiers: Urinary tract infection type: acute cystitis Hematuria presence: without hematuria Qualified Code(s): N30.00 - Acute cystitis without hematuria Discharge Date/Time: 05/19/19 11:50
[2019-05-19 09:46] LABS: BASOPHILS # (AUTO) 0.1 10^3/uL (0.0-0.1); BASOPHILS % (AUTO) 0.9 %; EOSINOPHILS # (AUTO) 0.3 10^3/uL (0.0-0.7); EOSINOPHILS % (AUTO) 4.1 %; LYMPHOCYTES # (AUTO) 1.6 10^3/uL (1.5-3.5); LYMPHOCYTES % (AUTO) 20.8 %; MEAN CORPUSCULAR HEMOGLOBIN 27.2 pg (27.0-31.0); MEAN CORPUSCULAR HGB CONC 28.8 g/dL (32.0-36.0); MEAN CORPUSCULAR VOLUME 94.7 fL (80.0-94.0); MEAN PLATELET VOLUME 9.4 fL (7.4-11.4); MONOCYTES # (AUTO) 0.6 10^3/uL (0.0-1.0); MONOCYTES % (AUTO) 7.6 %; NEUTROPHILS # (AUTO) 5.2 10^3/uL (1.5-6.6); NEUTROPHILS % (AUTO) 65.7 %; PLT - PLATELET COUNT 312 10^3/uL (130-450); RED BLOOD COUNT 2.46 10^6/uL (4.70-6.10); RED CELL DISTRIBUTION WIDTH 14.7 % (12.0-15.0); WHITE BLOOD COUNT 7.9 x10^3/uL (4.8-10.8)
[2019-05-19 09:48] LABS: HGB - HEMOGLOBIN 6.7 g/dL (14.0-18.0); PT - PROTHROMBIN TIME 11.6 secs (9.9-12.6)
[2019-05-19 09:49] LABS: ALBUMIN 3.2 g/dL (3.2-5.5); ALBUMIN/GLOBULIN RATIO 1.1 (1.0-2.2); BILIRUBIN,TOTAL 0.4 mg/dL (0.2-1.0); CALCIUM 8.9 mg/dL (8.5-10.3); CREATININE 1.4 mg/dL (0.6-1.2); TOTAL PROTEIN 6.1 g/dL (6.7-8.2)
[2019-05-19 09:55] LABS: PARTIAL THROMBOPLASTIN TIME 27.9 secs (24.9-33.3)
[2019-05-19 10:14] LABS: PLATELET ESTIMATE, MANUAL NORMAL (130-450,000) (NORMAL); PLATELET MORPHOLOGY NORMAL APPEARANCE (NORMAL)
[2019-05-19 10:28] LABS: BILIRUBIN,URINE NEGATIVE (NEGATIVE); GLUCOSE, URINE (UA) NEGATIVE (NEGATIVE); KETONES,URINE (UA) NEGATIVE (NEGATIVE); LEUKOCYTE ESTERASE, URINE LARGE (NEGATIVE); NITRITE,URINE POSITIVE (NEGATIVE); OCCULT BLOOD,URINE NEGATIVE (NEGATIVE); PH,URINE 5.5 PH (5.0-7.5); PROTEIN,URINE NEGATIVE (NEGATIVE); UROBILINOGEN,URINE 0.2 (NORMAL) E.U./dL (NORMAL)
[2019-05-19 10:34] LABS: CLARITY,URINE SL. CLOUDY (CLEAR)
[2019-05-19 10:35] LABS: BACTERIA,URINE Few /HPF (None Seen); RBC,URINE 0-5 /HPF (0-5); SQUAMOUS EPITHELIAL CELL,UR RARE Squamous (<= Few); WBC CLUMPS,URINE PRESENT
[2019-05-19] MEDS ORDERED: ACETAMINOPHEN 325 MG TABLET PO PRN (10:50)
[2019-05-19] MEDS ORDERED: ONDANSETRON 4 MG/2 ML VIAL IVP PRN (10:50)
[2019-05-19] MEDS ORDERED: SODIUM CHLORIDE FLUSH 0.9% 10 ML SYRINGE IVP PRN (10:50)
[2019-05-19] MEDS ORDERED: ZOLPIDEM 5 MG TABLET PO PRN (10:50)
[2019-05-19] MEDS ORDERED: cefTRIAXone 1 GM VIAL IV SCH (11:00)
--- NOTE | 2019-05-19 11:08 | HISTORY & PHYSICAL EXAMINATION ---
Chief Complaint - Chief Complaint Chief Complaint: lightheaded History of Present Illness - History of Present Illness HPI Comment/Other: 88-year-old male With multiple cardiovascular comorbidities to include hypertension, hyperlipidemia, CHF, chronic atrial fibrillation without anticoagulation, insulin requiring type 2 diabetes mellitus, morbid obesity, chronic bilateral edema, hx of GI bleed with black stool without intervention, who presents to the emergency department complain for lightheaded, fatigue and dizziness. Pt report he had black stool but he also took iron pills. He report he feel lightheaded and fatigue. pt report he had similar black stool about 3 months ago, and anemia. he was required to have 4 units of blood transfusion in the past. Surgeon did evaluate pt and did think pt had a remarkably poor candidate for any invasive procedure, it was even a risky proposition to sedate him for a limited EGD. pt report he has strong family hx of cancer. His father and mother both from cancer. His brother from brain cancer, his sister from colon cancer. Today pt's HGB is 6.7. Pt denies chest pain, pre-syncope or syncope, headache, abdominal pain, fever, chill, cough, shortness of breath, dysuria, hematuria. UA analysis reveals positive Nitrite, and large leukocystes esterase. pt was admitted in observation unit for further evaluation and treatment. History - Past Medical History Cardiovascular: reports: Congestive heart failure, Hypertension, Atrial fibrillation Respiratory: reports: Shortness of breath, Sleep apnea Neuro: reports: CVA, Peripheral neuropathy Endocrine/Autoimmune: reports: Type 2 diabetes : reports: Nocturia, Frequency Derm: reports: Other MRSA Hx?: No - Family & Social History Family History: Mother: , Cancer, Father: , Cancer Family History Comment/Other: His father and mother both from cancer. His brother from brain cancer, his sister from colon cancer. Social History Notes: pt denies cigarette smoking, alcohol and drug abuse. pt currently moved back to [facility], living at [place] at his own house with his son and daughter in law. - POLST POLST Status: Full Code Meds/Allgy - Home Medications Home Medications: Ambulatory Orders Medication Instructions Recorded Confirmed Aspirin [Aspirin EC] 81 mg PO DAILY 02/10/19 02/11/19 Cholecalciferol [Vitamin D3] 5,000 unit PO DAILY 02/10/19 02/11/19 Multivit-Min/FA/Lycopen/Lutein 1 each PO DAILY 02/10/19 02/11/19 [Centrum Silver Men Tablet] Tamsulosin HCl [Flomax] 0.4 mg PO QPM 02/10/19 02/11/19 Bumetanide [Bumex] 2 mg PO DAILY #30 tablet 02/15/19 Ferrous Sulfate 325 mg PO BID #60 tablet 02/15/19 Insulin Glargine [Lantus Solostar] 10 unit SUBQ QPM pen 02/15/19 Metoprolol Succinate [Toprol Xl] 25 mg PO DAILY #30 tablet 02/15/19 Pantoprazole [Protonix] 40 mg PO QDAC #30 tablet 02/15/19 Spironolactone [Aldactone] 25 mg PO DAILY #30 tablet 02/15/19 Sucralfate [Carafate] 1 gm PO QID #600 ml 02/15/19 - Allergies Allergies/Adverse Reactions: Allergies Allergy/AdvReac Type Severity Reaction Status Date / Time No Known Drug Allergies Allergy Verified 02/10/19 15:09 Review of Systems - Constitutional Constitutional: reports: Fatigue. denies: Fever, Chills, Malaise, Weakness, Poor appetite, Diaphoresis, Night sweats - Eyes Eyes: denies: Pain, Irritation, Amaurosis, Blurred vision, Spots in vision, Field loss, Vision loss, Dipolpia - Ears, Nose & Throat Ears, Nose & Throat: denies: Ear pain, Hearing loss, Hearing aids, Tinnitus, V ertigo, Nasal pain, Nasal discharge, Nosebleeds, Nasal obstruction, Postnasal drainage, Dentures, Sore throat, Hoarseness, Mouth lesions, Bleeding gums - Cardiovascular Cariovascular: reports: Lightheadedness. denies: Irregular heart rate, Palpitations, Chest pain, Edema, Syncope, Exertional dyspnea, Decr. exercise tolerance - Respiratory Respiratory: denies: Cough, Sputum production, Wheezing, Snoring, Hemoptysis, Or thopnea, SOB at rest, SOB with exertion - Gastrointestinal Gastrointestinal: denies: Abdominal pain, Abdominal distention, Constipation, Diarrhea, Change in bowel habits, Rectal bleeding, Black stools, Bloody stools, Nausea, Vomiting, Bile emesis, Raji blood emesis, Coffee grounds emesis, Reflux/heartburn - Genitourinary Genitourinary: denies: Dysuria, Frequency, Urgency, Hematuria, Incontinence, Flank pain, Nocturia, Urethral discharge - Musculoskeletal Musculoskeletal: denies: Muscle pain, Back pain, Muscle aches, Stiffness, Limited range of motion, Muscle weakness, Gout, Joint pain - Integumentary Integumentary: denies: Rash, Pruritis, Lesions, Dryness, Lumps, Acne, Pigment changes, Nail changes - Neurological Neurological: denies: General weakness, Focal weakness, Headache, Dizziness, Numbness, Memory problems, Pre-existing deficit, Abnormal gait, Seizures, Incoordination, Slurred speech - Psychiatric Psychiatric: denies: Depression, Anxiety, Suicidal, Delusions, Hallucinations, Homicidal - Endocrine Endocrine: denies: Polyuria, Polydypsia - Hematologic/Lymphatic Hematologic/Lymphatic: reports: Anemia. denies: Bruising, Petechiae, Blood clots, Lymphadenopathy, Bleeding tendencies Exam - Vital Signs Reviewed Vital Signs: Yes Vital Signs: Vital Signs x48h Temp Pulse Resp BP Pulse Ox 05/19/19 10:51 86 16 121/62 99 05/19/19 10:20 55 L 12 115/68 96 05/19/19 09:47 78 16 130/52 L 96 05/19/19 09:13 36.2 C L 103 H 18 119/63 94 - Physical Exam General Appearance: positive: No acute distress, Alert. negative: Lethargic Eyes Bilateral: positive: Normal inspection, PERRL, No lid inflammation, Conjunctivae nml ENT: positive: ENT inspection nml, Pharynx nml, No signs of dehydration. negative: Purulent nasal drainage, Pharyngeal erythema, Oral lesions Neck: positive: Nml inspection, Thyroid nml, No JVD, Trachea midline. negative: Thyromegaly, Lymphadenopathy (R), Lymphadenopathy (L), Stiff neck, Swelling/bruising, Tracheal deviation Respiratory: positive: Chest non-tender, No respiratory distress, Breath sounds nml. negative: Wheezes, Rales, Rhonchi Cardiovascular: positive: Regular rate & rhythm, No murmur, No gallop. negative: Irregularly irregular, Extrasystoles, Tachycardia, Bradycardia, JVD present, Systolic murmur, Diastolic murmur Peripheral Pulses: positive: 2+ Abdomen: positive: Non-tender, No organomegaly, Nml bowel sounds, No distention. negative: Tenderness, Guarding, Rebound Back: positive: Nml inspection. negative: CVA tenderness (R), CVA tenderness (L) Skin: positive: Color nml, No rash, Warm, Dry. negative: Cyanosis, Diaphoresis, Pallor Extremities: positive: Non-tender, Nml appearance. negative: Calf tenderness, Joint swelling, Serena's sign/cords Neurologic/Psychiatric: positive: Oriented x3, Sensation nml, Mood/affect nml. negative: Weakness, Sensory loss, Facial droop, Slurred/abnml speech, Depressed mood/affect Sepsis Event Note (H) - Evaluation Current Stage of Sepsis: Ruled out Conclusion/Plan - Problem List (1) Iron deficiency anemia Conclusion/Plan: pt has hx of chronic anemia. Iron study reveals pt has severe iron deficiency anemia. pt report he took bid of iron pill at home, he report black stool. occult stool test is still pending. But pt has hx of GI bleed. Because pt has remarkable risk for any procedure per previous GI surgeon review, pt has no EGD or colonoscopy done recently. Today pt has 6.7 HGB Plan: transfusion of two units of blood now. H&H IVF of iron continue home iron pill (2) Black stool Conclusion/Plan: pt report black stool but pt also took bid of iron. pt has remarkable risk for any procedure per previous GI surgeon review, pt has no EGD or colonoscopy done recently. I discussed with pt's son about pt's conditions and care plan. pt's Son did understand the benefit and risks for EGD/colonoscopy procedures, agree his father has no procedure at this time, and hold of Aspirin which pt took at home. pt's son understand the risk and benefits of blood thinner, such as Aspirin to his father. pt took aspirin 81 mg at home. H&H monitor pt transfusion of blood two units now. IV of iron continue home iron pills protonix IV continue home Crafat (3) UTI (urinary tract infection) Conclusion/Plan: UA analysis pt has UTI. treat with Rocephine, and UA culture is pending (4) Chronic kidney disease (CKD) stage G3a/A2, moderately decreased glomerular filtration rate (GFR) between 45-59 mL/min/1.73 square meter and albuminuria creatinine ratio between 30-299 mg/g Conclusion/Plan: creatinine is 1.4, nearly as his baseline creatinine. Plan: keep hydration, hold nephrotoxical agents daily lab monitor (5) DM2 (diabetes mellitus, type 2) Conclusion/Plan: A1c is 7.1 but mild hyperglycemia reconcile home Lantus slide scale, ACHS, hypoglycemia protocol (6) Chronic combined systolic and diastolic CHF (congestive heart failure) Conclusion/Plan: pt's ECHO in January 2019 reveals EF at 45% with severe right heart pressure abnormal. pt present chronic bilateral lower extremities edema. continue home meds Bumex, Metoprolol and spironolactone tele and vital monitor (7) Pulmonary HTN Conclusion/Plan: ECHO on 02/15 reveals RVSP 79 mmHG. pt has no new complaint at this time. pt has 98% sats on room air continue Spironolactone (8) Bilateral lower extremity edema Conclusion/Plan: pt present chronic bilateral lower extremity edema. There is no tenderness, warm, pain, or erythema at his lower extremities. rise his legs continue home Bumex and spironolactone (9) Chronic a-fib Conclusion/Plan: pt has heart rate at 70 controlled. pt has no anticoagulation at his home meds list because of GI bleeding in the previous. continue Metoprolol tele and vital monitor (10) HTN (hypertension) Conclusion/Plan: stable, continue home meds vital monitor (11) Immobility Conclusion/Plan: pt report he has no much mobility, very much bed bound. nurse turn Q2H and support. (12) Morbid obesity Conclusion/Plan: BMI 72, age 88. So it is high risk for any procedure. continue support and monitor pt (13) Full code status Conclusion/Plan: pt request full code at this time - Lab Results Fish Bones: 05/19/19 09:22 05/19/19 09:22 Core Measures - Anticipated LOS I expect patient to be DC'd or transferred within 96 hours.: Yes - DVT/VTE - Prophylaxis VTE/DVT Device ordered at admit?: Yes VTE/DVT Prophylaxis med ordered at admit?: Yes
[2019-05-19 11:55] LABS: FERRITIN 17.1 ng/mL (23.9-336.2)
[2019-05-19] MEDS ORDERED: cefTRIAXone 1 GM in SODIUM CHLORIDE 0.9% MINIBAG 100 ML IV SCH (12:00)
[2019-05-19] MEDS ORDERED: FERROUS SULFATE 325 MG TABLET PO SCH (12:00)
[2019-05-19 12:21] LABS: IRON < 6 ug/dL (45-182); TOTAL IRON BINDING CAPACITY 365 ug/dL (250-450); TRANSFERRIN 261 mg/dL (180-329)
[2019-05-19] MEDS: INSULIN ASPART 300 UNIT/3 ML PEN SUBQ SCH ×3 (12:45→21:06)
[2019-05-19] MEDS: METOPROLOL SUCCINATE 25 MG TABLET PO SCH (12:47)
[2019-05-19] MEDS: cefTRIAXone 1 GM in SODIUM CHLORIDE 0.9% MINIBAG 100 ML IV SCH (12:47)
[2019-05-19] MEDS: PANTOPRAZOLE 40 MG VIAL IVP SCH (12:52)
[2019-05-19] MEDS ORDERED: FERRIC GLUCONATE 125 MG in SODIUM CHLORIDE 0.9% 100ML 100 ML IV ONE (13:30)
[2019-05-19] MEDS ORDERED: IOVERSOL 320 100 ML VIAL IVP ONE ×2 (13:53→14:59)
[2019-05-19 14:15] LABS: ABSOLUTE RETICS # AUTO 0.174 10^6/uL (0.020-0.110); RED BLOOD COUNT 2.58 10^6/uL (4.70-6.10)
[2019-05-19] MEDS: BUMETANIDE 1 MG TABLET PO SCH (14:23)
[2019-05-19 14:36] LABS: HB2 TOTAL 7.4 g/dL; HEMOGLOBIN A1C 0.4 g/dL; HEMOGLOBIN A1C % 7.1 % (4.6-6.2)
--- NOTE | 2019-05-19 15:25 | CT Report ---
Reason: continue GI bleed Procedure Date: 05/19/2019 Accession Number: [id number] / [id number] Procedure: CT - Abdomen/Pelvis W CPT Code: FULL RESULT: EXAM: CT ABDOMEN AND PELVIS EXAM DATE: 05/19/2019 02:48 PM. CLINICAL HISTORY: Gastrointestinal bleeding. COMPARISONS: ABDOMEN/PELVIS W/ 02/11/2019 3:32 PM. TECHNIQUE: Routine helical CT imaging was performed through the abdomen and pelvis. IV contrast: 100 mL Optiray 320. Enteric contrast: No. Reconstructions: Coronal and sagittal. In accordance with CT protocol optimization, one or more of the following dose reduction techniques were utilized for this exam: automated exposure control, adjustment of mA and/or KV based on patient size, or use of iterative reconstructive technique. FINDINGS: Lung Bases: Unremarkable. Liver: Normal. No masses. Gallbladder/Bile Ducts: Unremarkable. Spleen: Scattered calcifications are seen in the spleen consistent with old granulomatous disease. No masses. Pancreas: Generalized atrophy, otherwise unremarkable. Adrenal Glands: Normal. Kidneys: Mild cortical renal atrophy is seen. Tiny exophytic cyst is seen in the lower pole left kidney. No masses or hydronephrosis. Peritoneal Cavity/Bowel: There is some mild wall thickening seen in the cecum (image 41/5 and image 47/3). There is mild predominantly sigmoid diverticulosis without evidence of diverticulitis. There is no obstruction or ileus. No free fluid or free air. The appendix is well visualized and normal. Pelvic Organs: Normal. The bladder and visualized pelvic organs are within normal limits. Vasculature: Calcified atherosclerotic disease of the aorta is seen without aneurysm or other significant vascular abnormality. Bones: Stable mild compression fracture deformity at L1. No acute osseous abnormality is demonstrated. Other: None. IMPRESSION: 1. Mild circumferential wall thickening in the region of the cecum. Underlying mass is not excluded. Consider correlation with direct visualization. 2. Mild sigmoid diverticular cyst without diverticula or other intra-abdominal inflammatory process. 3. Stable mild chronic L1 compression fracture. RADIA
[2019-05-19] MEDS: SODIUM CHLORIDE FLUSH 0.9% 10 ML SYRINGE IVP SCH (16:26)
[2019-05-19] MEDS: SUCRALFATE 1 GM/10 ML UDC PO SCH ×2 (16:27→21:12)
[2019-05-19 18:14] LABS: HGB - HEMOGLOBIN 7.9 g/dL (14.0-18.0)
[2019-05-19] MEDS ORDERED: INSULIN GLARGINE 300 UNIT/3 ML PEN SUBQ SCH (21:00)
[2019-05-19] MEDS: FERROUS SULFATE 325 MG TABLET PO SCH (21:12)
[2019-05-19 23:48] LABS: HGB - HEMOGLOBIN 7.9 g/dL (14.0-18.0)
[2019-05-20] MEDS: SODIUM CHLORIDE FLUSH 0.9% 10 ML SYRINGE IVP SCH ×2 (00:13→08:37)
[2019-05-20 05:37] LABS: BASOPHILS # (AUTO) 0.1 10^3/uL (0.0-0.1); EOSINOPHILS # (AUTO) 0.6 10^3/uL (0.0-0.7); EOSINOPHILS % (AUTO) 8.3 %; HGB - HEMOGLOBIN 7.8 g/dL (14.0-18.0); LYMPHOCYTES # (AUTO) 1.6 10^3/uL (1.5-3.5); LYMPHOCYTES % (AUTO) 21.1 %; MEAN CORPUSCULAR HEMOGLOBIN 28.4 pg (27.0-31.0); MEAN CORPUSCULAR HGB CONC 30.8 g/dL (32.0-36.0); MEAN PLATELET VOLUME 9.2 fL (7.4-11.4); MONOCYTES # (AUTO) 0.7 10^3/uL (0.0-1.0); MONOCYTES % (AUTO) 9.8 %; NEUTROPHILS # (AUTO) 4.4 10^3/uL (1.5-6.6); PLT - PLATELET COUNT 280 10^3/uL (130-450); RED BLOOD COUNT 2.75 10^6/uL (4.70-6.10); RED CELL DISTRIBUTION WIDTH 15.4 % (12.0-15.0); WHITE BLOOD COUNT 7.4 x10^3/uL (4.8-10.8)
[2019-05-20 05:46] LABS: CALCIUM 8.5 mg/dL (8.5-10.3); CREATININE 1.6 mg/dL (0.6-1.2)
[2019-05-20] MEDS: PANTOPRAZOLE 40 MG VIAL IVP SCH (06:01)
[2019-05-20] MEDS: BUMETANIDE 1 MG TABLET PO SCH ×2 (06:02→13:35)
[2019-05-20] MEDS: SUCRALFATE 1 GM/10 ML UDC PO SCH ×2 (06:02→11:59)
[2019-05-20] MEDS ORDERED: POTASSIUM CHLORIDE 20 MEQ TABLET PO ONE (06:32)
[2019-05-20] MEDS: INSULIN ASPART 300 UNIT/3 ML PEN SUBQ SCH ×2 (08:06→11:56)
[2019-05-20] MEDS: cefTRIAXone 1 GM in SODIUM CHLORIDE 0.9% MINIBAG 100 ML IV SCH (08:35)
[2019-05-20] MEDS: METOPROLOL SUCCINATE 25 MG TABLET PO SCH (08:36)
[2019-05-20] MEDS: FERROUS SULFATE 325 MG TABLET PO SCH (08:36)
[2019-05-20] MEDS ORDERED: TAMSULOSIN 0.4 MG CAPSULE PO SCH (09:00)
[2019-05-20] MEDS ORDERED: POLYETHYLENE GLYCOL 3350 17 GM PACKET PO SCH (09:00)
[2019-05-20] MEDS ORDERED: SPIRONOLACTONE 25 MG TABLET PO SCH (09:00)
[2019-05-20] MEDS ORDERED: SODIUM CHLORIDE 0.9% 500 ML IV PRN (11:45)
[2019-05-20] MEDS ORDERED: SODIUM CHLORIDE 0.9% 500 ML ONE (11:59)
--- NOTE | 2019-05-20 14:09 | Discharge Plan ---
Discharge Plan Problem Reviewed?: Yes Disposition: Home, Self Care Condition: Poor Prescriptions: Cephalexin [Keflex] 500 mg PO BID #14 capsule Pantoprazole Sodium [Protonix] 40 mg PO DAILY #30 tablet. Diet: Diabetic Activity Restrictions: Activity as Tolerated Shower Restrictions: No (fall precaution, caregiver closely monitor) Instruction Topics: Pantoprazole tablets, Cephalexin tablets or capsules Health Concerns: iron deficiency anemia, black stool, UTI Plan of Treatment: you are found to have severe iron deficiency anemia. IV of iron was given at hospital, please continue oral iron. you are found to have black stool, you and your family does not want any further intervention EGD/colonoscopy at this point, also you were in the high risk for EGD/colonoscopy procedure by surgeon in previous similar admission. your HGB is stable now. please avoid NSAIDs and alcohol. please followup your gastroente rologist as out-pt for further management. you are found to have UTI, antibiotics is prescribed for you to finish the treatment course. Care Goals: stabilization and improvement of your medical condition Assessment: assessment as the above Additional Instructions or Follow Up instructions: you may followup your PCP in one week and have H&H check, followup your fur repair inspector as out-pt. Should your symptoms return or worsen, you may present ER or call 911 for help. No Smoking: If you smoke, Please STOP! Call for help. Follow-up with: Eder Crain MD [Primary Care Provider] -
[2019-05-20 14:22] VITALS: BP 115/48
[2019-05-20 15:06] LABS: HGB - HEMOGLOBIN 8.9 g/dL (14.0-18.0)
--- NOTE | 2019-05-20 15:27 | DISCHARGE SUMMARY ---
Discharge Summary Discharge Date: 05/20/19 Discharging Provider: DALAL Primary Care Provider: Dr. Eder Crain Condition at Discharge: Poor Discharge Disposition: 01 Home, Self Care Discharge Facility Name: home - DIAGNOSES Admission Diagnoses: (1) Iron deficiency anemia (2) Black stool (3) UTI (urinary tract infection) (4) Chronic kidney disease (CKD) stage G3a/A2, moderately decreased glomerular filtration rate (GFR) between 45-59 mL/min/1.73 square meter and albuminuria creatinine ratio between 30-299 mg/g (5) DM2 (diabetes mellitus, type 2) (6) Chronic combined systolic and diastolic CHF (congestive heart failure) (7) Pulmonary HTN (8) Bilateral lower extremity edema (9) Chronic a-fib (10) HTN (hypertension) (11) Immobility (12) Morbid obesity Discharge Diagnoses with Status of Each Condition: 1) Iron deficiency anemia stable (2) Black stool stable (3) UTI (urinary tract infection) stable. pt is prescribed Keflex to finish the treatment course (4) Chronic kidney disease (CKD) stage G3a/A2, moderately decreased glomerular filtration rate (GFR) between 45-59 mL/min/1.73 square meter and albuminuria creatinine ratio between 30-299 mg/g stable (5) DM2 (diabetes mellitus, type 2) stable (6) Chronic combined systolic and diastolic CHF (congestive heart failure) stable (7) Pulmonary HTN stable (8) Bilateral lower extremity edema stable (9) Chronic a-fib stable (10) HTN (hypertension) stable (11) Immobility stable (12) Morbid obesity advise pt for loss of weight (13)medical non-compliance advise pt for medical compliance - HPI History of Present Illness: 88-year-old male With multiple cardiovascular comorbidities to include hypertension, hyperlipidemia, CHF, chronic atrial fibrillation without anticoagulation, insulin requiring type 2 diabetes mellitus, morbid obesity, chronic bilateral edema, hx of GI bleed with black stool without intervention, who presents to the emergency department complain for lightheaded, fatigue and dizziness. Pt report he had black stool but he also took iron pills. He report he feel lightheaded and fatigue. pt report he had similar black stool about 3 months ago, and anemia. he was required to have 4 units of blood transfusion in the past. Surgeon did evaluate pt and did think pt had a remarkably poor candidate for any invasive procedure, it was even a risky proposition to sedate him for a limited EGD. pt report he has strong family hx of cancer. His father and mother both from cancer. His brother from brain cancer, his sister from colon cancer. Today pt's HGB is 6.7. Pt denies chest pain, pre-syncope or syncope, headache, abdominal pain, fever, chill, cough, shortness of breath, dysuria, hematuria. UA analysis reveals positive Nitrite, and large leukocystes esterase. pt was admitted in observation unit for further evaluation and treatment. - HOSPITAL COURSE Hospital Course: pt was admitted for lightheaded and fatigue. pt was found to anemia at HGB 6.7. pt had similar admission about 3 months ago in this hospital. pt also report black stool. pt was transfused two unit of blood first. his HGB was stable at 7.8/7.9. because pt was symptomatic anemia in the admission. pt was given another unit of blood. pt had 8.9 HGB when he was d/c. Pt had no EGD or colonosc opy done at previous admission at three months ago. In the file pt was documented to have a remarkably poor candidate for any invasive procedure, it was even a risky proposition to sedate him for a limited EGD. pt had documented BMI 72 with morbid obesity, combined systolic and diastolic CHF, pulmonary HTN, bilateral lower extremity edema, immobility, CKD stage 3. pt and pt's family declined to have EGD or colonoscopy for pt. pt's HGB is stable in serial H&H test. I Discussed with pt and pt's family about pt's result of CT abdomen, and pt had positive occult test. All their questions were ans wered. pt was advised to followup his PCP and followup H&H test, and followup his dairy husbandry worker as out-pt. pt's home Aspirin was stopped about one week ago by pt's family and himself. pt is prescribed Protonix. pt was also found to have UTI. Keflex is prescribed for pt to finish the treatment course. pt has hx of chronic Afib but now pt has no any anticoagulation and antipletlet because of GI bleed. pt and pt's son understand the benefit and risk without anticoagulation and antipletlet at the chronic afib. Pt and his son chose without anticoagulation and antipletlet to pt. The detail of hospital course is as the below. 1) Iron deficiency anemia stable. pt was given IV of iron in hospital. pt was advised continuing of home iron pill bid, followup PCP management and had H&H in one week. pt had total three units of blood. pt's HGB is stable in serial H&H test. HGB was 8.9 on d/c (2) Black stool stable. discussed with occult test is positive result and CT of abdomen result with pt and pt's family. pt and his family choose no intervention of EGD or colonoscopy to pt. followup PCP and his dairy husbandry worker for further management. (3) UTI (urinary tract infection) stable. pt is prescribed Keflex to finish the treatment course (4) Chronic kidney disease (CKD) stage G3a/A2, moderately decreased glomerular filtration rate (GFR) between 45-59 mL/min/1.73 square meter and albuminuria creatinine ratio between 30-299 mg/g stable (5) DM2 (diabetes mellitus, type 2) stable (6) Chronic combined systolic and diastolic CHF (congestive heart failure) stable (7) Pulmonary HTN stable (8) Bilateral lower extremity edema stable (9) Chronic a-fib stable (10) HTN (hypertension) stable (11) Immobility stable (12) Morbid obesity advise pt for loss of weight (13)medical non-compliance pt's daughter in law, she was in the charge of scheduling pt's home meds. she reported pt stopped take Aspirin about one weeks without provider's order. advise pt for medical compliance - ALLERGIES Allergies/Adverse Reactions: Allergies Allergy/AdvReac Type Severity Reaction Status Date / Time No Known Drug Allergies Allergy Verified 02/10/19 15:09 - MEDICATIONS Home Medications: Ambulatory Orders Medication Instructions Recorded Confirmed Cholecalciferol [Vitamin D3] 5,000 unit PO DAILY 02/10/19 05/20/19 Multivit-Min/FA/Lycopen/Lutein 1 each PO DAILY 02/10/19 05/20/19 [Centrum Silver Men Tablet] Tamsulosin HCl [Flomax] 0.4 mg PO QPM 02/10/19 05/20/19 Bumetanide [Bumex] 2 mg PO DAILY #30 tablet 02/15/19 05/20/19 Ferrous Sulfate 325 mg PO BID #60 tablet 02/15/19 05/20/19 Spironolactone [Aldactone] 25 mg PO DAILY #30 tablet 02/15/19 05/20/19 Sucralfate [Carafate] 1 gm PO QID #600 ml 02/15/19 05/20/19 Cephalexin [Keflex] 500 mg PO BID #14 capsule 05/20/19 Insulin Glargine [Lantus Solostar] 40 unit SUBQ QPM 05/20/19 05/20/19 Pantoprazole Sodium [Protonix] 40 mg PO DAILY #30 tablet. 05/20/19 - PHYSICAL EXAM AT DISCHARGE General Appearance: positive: No acute distress, Alert. negative: Lethargic Eyes Bilateral: positive: Normal inspection, PERRL, No lid inflammation, Conjunctivae nml ENT: positive: ENT inspection nml, Pharynx nml, No signs of dehydration. negative: Purulent nasal drainage, Pharyngeal erythema, Oral lesions Neck: positive: Nml inspection, Thyroid nml, No JVD, Trachea midline. negative: Thyromegaly, Lymphadenopathy (R), Lymphadenopathy (L), Stiff neck, Swelling/bruising, Tracheal deviation Respiratory: positive: Chest non-tender, No respiratory distress, Breath sounds nml. negative: Wheezes, Rales, Rhonchi Cardiovascular: positive: Regular rate & rhythm, No murmur, No gallop. negative: Irregularly irregular, Extrasystoles, Tachycardia, Bradycardia, Systolic murmur, Diastolic murmur Peripheral Pulses: positive: 2+ Abdomen: positive: Non-tender, No organomegaly, Nml bowel sounds, No distention. negative: Tenderness, Guarding, Rebound Back: positive: Nml inspection. negative: CVA tenderness (R), CVA tenderness (L) Skin: positive: Color nml, No rash, Warm, Dry. negative: Cyanosis, Diaphoresis, Pallor Extremities: positive: Non-tender. negative: Calf tenderness, Joint swelling, Serena's sign/cords Neurologic/Psychiatric: positive: Oriented x3, Sensation nml, Mood/affect nml. negative: Weakness, Sensory loss, Facial droop, Slurred/abnml speech, Depressed mood/affect - LABS Result Diagrams: 05/20/19 15:02 05/20/19 05:20 - SEPSIS Current Stage of Sepsis: Ruled out - FOLLOW UP Follow Up: you are found to have severe iron deficiency anemia. IV of iron was given at hospital, please continue oral iron. you are found to have black stool, you and your family does not want any further intervention EGD/colonoscopy at this point, also you were in the high risk for EGD/colonoscopy procedure by surgeon in previous similar admission. your HGB is stable now. please avoid NSAIDs and alcohol. please followup your dairy husbandry worker as out-pt for further management. you are found to have UTI, antibiotics is prescribed for you to finish the treatment course. you may followup your PCP in one week and have H&H check, followup your dairy husbandry worker as out-pt. Should your symptoms return or worsen, you may present ER or call 911 for help. - TIME SPENT Time Spent in Discharge (Minutes): 60
== END 2019-05-20 15:52 | disposition home or self-care (01) ==
LOC: ED 09:03 → MS2 10:50
PROVIDERS: ADMIT Nurse Practitioner Gerontology; ATTEND Nurse Practitioner Gerontology
DX: D50.9 Iron deficiency anemia, unspecified (principal); R19.5 Other fecal abnormalities; N30.00 Acute cystitis without hematuria; I13.0 Hypertensive heart and chronic kidney disease with heart failure and stage 1 through stage 4 chronic kidney disease, or unspecified chronic kidney disease; N18.3 Chronic kidney disease, stage 3 (moderate); I50.42 Chronic combined systolic (congestive) and diastolic (congestive) heart failure; I27.20 Pulmonary hypertension, unspecified; E11.22 Type 2 diabetes mellitus with diabetic chronic kidney disease; I48.2 Chronic atrial fibrillation; E66.01 Morbid (severe) obesity due to excess calories; Z68.45 Body mass index [BMI] 70 or greater, adult; E78.5 Hyperlipidemia, unspecified; Z74.09 Other reduced mobility; Z91.19 Patient's noncompliance with other medical treatment and regimen; Z74.01 Bed confinement status; Z79.4 Long term (current) use of insulin; Z79.82 Long term (current) use of aspirin; Z80.0 Family history of malignant neoplasm of digestive organs; Z87.19 Personal history of other diseases of the digestive system
CPT/HCPCS: 36415; 36430; 74177; 80048; 80053; 81001; 82272; 82607; 82728; 83036; 83540; 83615; 83690; 83735; 83880; 84466; 84484; 85014; 85018; 85025; 85044; 85610; 85730; 86850; 86900; 86901; 86920; 87077; 87086; 87181; 93005; 96365; 96366; 96367; 96368; 96375; 96376; 99284; 99285; A9270; G0378; J1815; J2916; P9016; Q9967; 81003